=== PATIENT | male | born 1975 | race Asian ===

== ENCOUNTER 2022-08-24 08:54 | Outpatient (REF) | payer OTHER, SELFPAY ==
[2022-08-24 11:10] LABS: MANUAL DIFF FLAG NO
[2022-08-24 11:18] LABS: Basophils Absolute Auto 0.1 X10*3/uL (0.0-0.2); Basophils Percent Auto 0.9 % (0-2); Eosinophils Absolute Auto 0.6 X10*3/uL (0.0-0.4); Eosinophils Percent Auto 8.3 % (0-4); Hematocrit 43.2 % (42.0-52.0); Hemoglobin 14.5 g/dl (14.0-18.0); Imm Gran Abs Auto 0.02 X10*3/uL (0.00-0.03); Imm Gran Pct Auto 0.3 % (0.0-0.4); Lymphocytes Percent Auto 28.7 % (20-40); Mean Corpuscular HGB Conc 33.6 g/dl (31.0-36.0); Mean Corpuscular Hemoglobin 30.5 pg (27.0-33.0); Mean Corpuscular Volume 90.9 fL (80.0-98.0); Mean Platelet Volume 10.6 fL (9.4-12.4); Monocytes Absolute Auto 0.6 X10*3/uL (0.1-1.2); Monocytes Percent Auto 8.3 % (2-11); Neutrophils Absolute Auto 3.7 x10*3/uL (2.0-8.3); Neutrophils Percent Auto 53.5 % (45-73); Platelet Count 314 X10*3/uL (160-400); Red Blood Count 4.75 X10*6/uL (4.60-5.80); Red Cell Distribution Width 12.4 % (11.0-16.0)
[2022-08-24 13:20] LABS: Alanine Aminotransferase 141 U/L (0-40); Albumin Level 4.2 g/dL (3.5-5.0); Alkaline Phosphatase 65 U/L (39-117); Anion Gap 15 (12-20); Aspartate Amino Transferase 77 U/L (5-37); Bilirubin Total 0.6 mg/dL (0.0-1.0); Blood Urea Nitrogen 13 mg/dL (9-16); Calcium 9.3 mg/dL (8.4-10.2); Carbon Dioxide 28 mmol/L (22-29); Chloride 102 mmol/L (96-108); Cholesterol 239 mg/dL; Estimated Glomerular Filt Rate > 60; Glucose Fasting 92 mg/dL (60-99); HDL Cholesterol 47 mg/dL; LDL Cholesterol Calculated 163 mg/dl; Potassium 4.3 mmol/L (3.3-5.1); Sodium 141 mmol/L (135-145); TSH reflex Free T4 1.58 uIU/mL (0.32-4.0); Total Protein 6.8 g/dL (6.5-8.0); Triglycerides 148 mg/dL
== END 2022-08-24 08:55 | disposition home or self-care (01) ==
LOC: HO.HMGCLDS 08:54
PROVIDERS: PCP Internal Medicine; Visit Provider Internal Medicine
DX: Z00.01 Encounter for general adult medical examination with abnormal findings (principal); I10 Essential (primary) hypertension; Z87.442 Personal history of urinary calculi
CPT/HCPCS: 36415; 80053; 80061; 84443; 85025

== ENCOUNTER 2022-09-27 08:25 | Outpatient (REF) | payer OTHER, SELFPAY ==
--- NOTE | ~2022-09-27 | US_ITS ---
EXAMINATION: US ABDOMEN COMPLETE CLINICAL INFORMATION: Elevated LFTs. COMPARISON: None available. TECHNIQUE: Real-time imaging of the abdominal viscera. FINDINGS: PANCREAS: Normal. ABDOMINAL AORTA: The proximal, mid, and distal segments are normal in caliber. INFERIOR VENA CAVA: Visualized portions are normal. LIVER: The liver is normal in size. The liver contour is normal. Diffuse increased echogenicity of the liver parenchyma. No focal hepatic lesion. There is no intrahepatic biliary duct dilatation seen. GALLBLADDER: Normal. The gallbladder is physiologically distended without evidence of stones, sludge, polyps, wall thickening or pericholecystic fluid. COMMON BILE DUCT: Normal in caliber measuring 0.48 cm in diameter. RIGHT KIDNEY: Normal. No hydronephrosis. No renal calculi or focal parenchymal lesions. The kidney measures 10.3 cm in maximum dimension. LEFT KIDNEY: Normal. No hydronephrosis. No renal calculi or focal parenchymal lesions. The kidney measures 10.6 cm in maximum dimension. SPLEEN: Normal. The spleen measures 7.9 cm in maximum dimension. FREE FLUID: None. US/US abdomen complete IMPRESSION: Diffuse increased echogenicity of the liver parenchyma likely reflects fatty infiltration.
== END 2022-09-27 08:26 | disposition home or self-care (01) ==
LOC: HO.HMGCX 08:25
PROVIDERS: PCP Internal Medicine; Visit Provider Internal Medicine
DX: R79.89 Other specified abnormal findings of blood chemistry (principal)
CPT/HCPCS: 76700

== ENCOUNTER 2023-01-13 08:04 | Outpatient (REF) | payer OTHER, SELFPAY ==
[2023-01-13 12:27] LABS: Alanine Aminotransferase 138 U/L (0-40); Albumin Level 4.1 g/dL (3.5-5.0); Alkaline Phosphatase 61 U/L (39-117); Anion Gap 12 (12-20); Aspartate Amino Transferase 71 U/L (5-37); Bilirubin Total 0.5 mg/dL (0.0-1.0); Blood Urea Nitrogen 13 mg/dL (9-16); Calcium 9.2 mg/dL (8.4-10.2); Carbon Dioxide 26 mmol/L (22-29); Chloride 106 mmol/L (96-108); Estimated Glomerular Filt Rate > 60; Glucose Random 108 mg/dL (60-115); Potassium 4.3 mmol/L (3.3-5.1); Sodium 140 mmol/L (135-145)
== END 2023-01-13 08:05 | disposition home or self-care (01) ==
LOC: HO.HMGCLDS 08:04
PROVIDERS: PCP Internal Medicine; Visit Provider Internal Medicine
DX: I10 Essential (primary) hypertension (principal); R79.89 Other specified abnormal findings of blood chemistry; E78.9 Disorder of lipoprotein metabolism, unspecified
CPT/HCPCS: 36415; 80053

== ENCOUNTER 2023-01-15 15:12 | Outpatient (AMB) | payer OTHER, SELFPAY ==
--- NOTE | 2023-01-15 15:13 | MHC.PC.OV ---
Vital Signs 01/15/23 15:14 Height 5 ft 7 in Weight 176 lb 8 oz BMI 27.6 BP 128/98 H Blood Pressure Location Lt brachial Position Sitting Pulse 64 Pulse Source Pulse Oximeter Pulse Oximetry (%) 98 Oxygen Delivery Method Room Air Intake Visit Reasons: med refill Allergies No Known Allergies Allergy (Verified 01/15/23 15:14) Medication List - Last Reconciled 01/15/[address] MD atenolol 50 mg PO DAILY 90 days ezetimibe (Zetia) 10 mg PO DAILY omega 3-vnt-ebk-fish oil 1,000 mg (120 mg-180 mg) (Fish Oil) 1 cap PO DAILY Tobacco use date assessed: 01/15/23 Dental Screening Dental Screen Date: 01/15/23 Did you have a dental problem in the last 6 months where you did not have access to dental care?: No Was dental information given to patient?: No HPI med refill HPI Details Patient is a 47-year-old gentleman came in for his regular follow-up appointment Patient is currently taking atenolol 50 mg his blood pressure is 128/98 medication to atenolol 50-chlorthalidone 25 mg to a distance to pressure is to continue monitoring his blood pressure and your 70s with readings Labs done recently reviewed his liver enzymes continue to be due but stable Ultrasound liver showed fatty liver He is to continue Zetia for lipid disorder Labs to be repeated in 6 months with follow-up [facility] Social History Housing: House Patient Tobacco Use Status: Never used Tobacco e-Cigarette/Vaping Use: Never Used service: No Current occupational status: employed Cognitive needs: No Hearing needs: No Vision needs: Yes Questionnaire Thrive Questionnaire Date Thrive assessed: 08/14/22 AUDIT C Alcohol Use Questionnaire (AUDIT-C) 1. How often do you have a drink containing alcohol?: Never 3. How often do you have six or more drinks on one occasion?: Never Total Score: 0 Score Reviewed/Action Taken: Yes KIRBY-7 AMB Questionnaire KIRBY-7 Date KIRBY - 7 assessed: 08/14/22 Source: Developed by Drs. Corbin Porter, Marion Goodman, Anthony Law and colleagues, with an educational basim from [employer]. Review of Systems Const Denies chills and Denies fever(s) ENT Denies epistaxis and Denies nasal discharge Card Denies chest pain Resp Denies chest congestion, Denies cough and Denies hemoptysis GI Denies diarrhea and Denies nausea Skin/Breast Denies rash Neuro Reports no additional complaints Psych Reports no additional complaints Endo Reports no additional complaints Physical exam (Primary Care) Vital Signs: Last Vital Signs Pulse 64 01/15/23 15:14 BP 128/98 H 01/15/23 15:14 Pulse Ox 98 01/15/23 15:14 Oxygen Delivery Method Room Air 01/15/23 15:14 BMI result Body Mass Index 27.6 Tobacco/Smoking Status: Tobacco use Status Tobacco use date assessed 01/15/23 01/15/23 15:16 Patient Tobacco Use Status Never used Tobacco 01/15/23 15:16 e-Cigarette/Vaping Use Never Used 01/15/23 15:16 Thrive Assessment: Date of Thrive Assessment Date Thrive assessed 08/14/22 01/15/23 15:16 Const General: cooperative, comfortable and no acute distress Orientation/consciousness: patient oriented x3 HENMT Head: Yes normocephalic Eyes General: appearance normal, both eyes and all related structures Neck Neck: Yes supple Resp Effort & Inspection: normal respiratory effort, no cough and no stridor Cardio Rhythm: regular rhythm Heart sounds: S1 normal heart sound present and S2 normal heart sound present Skin General skin exam: turgor normal Neuro General: patient oriented x3, tone normal and moves all extremities Extrem Right lower extremity: no edema Left lower extremity: no edema Assessment and Plan Assessment & Plan (1) Hypertension, essential: Code(s): I10 - Essential (primary) hypertension (2) LFT elevation: Code(s): R79.89 - Other specified abnormal findings of blood chemistry (3) Lipid disorder: Code(s): E78.9 - Disorder of lipoprotein metabolism, unspecified Plan Patient is a 47-year-old gentleman came in for his regular follow-up appointment Patient is currently taking atenolol 50 mg his blood pressure is 128/98 medication to atenolol 50-chlorthalidone 25 mg to a distance to pressure is to continue monitoring his blood pressure and your 70s with readings Labs done recently reviewed his liver enzymes continue to be due but stable Ultrasound liver showed fatty liver He is to continue Zetia for lipid disorder Labs to be repeated in 6 months with follow-up Orders: Orders Comprehensive Met. Panel 5 Months E78.9 - Disorder of lipoprotein metabolism, unspecified, I10 - Essential (primary) hypertension, R79.89 - Other specified abnormal findings of blood chemistry LDL Cholesterol Direct 5 Months E78.9 - Disorder of lipoprotein metabolism, unspecified, I10 - Essential (primary) hypertension, R79.89 - Other specified abnormal findings of blood chemistry Complete Blood Count Auto Diff 5 Months E78.9 - Disorder of lipoprotein metabolism, unspecified, I10 - Essential (primary) hypertension, R79.89 - Other specified abnormal findings of blood chemistry Medications: New atenolol-chlorthalidone 50-25 mg 1 tab PO DAILY 30 tabs 0RF Discontinued atenolol Discontinued Reason: Doctor's Order 50 mg PO DAILY 90 days 90 tabs 0RF Coding Level of Care Code Est Pt Level 3 (28871) Diagnoses Hypertension, essential I10 LFT elevation R7.89 Lipid disorder E78.9
[2023-01-15 15:14] VITALS: BP 128/98; PULSE 64; O2SAT 98; BMI 27.6
== END 2023-01-15 15:34 | disposition home or self-care (01) ==
PROVIDERS: PCP Internal Medicine; Visit Provider Internal Medicine
DX: I10 Essential (primary) hypertension (principal); R79.89 Other specified abnormal findings of blood chemistry; E78.9 Disorder of lipoprotein metabolism, unspecified
CPT/HCPCS: 99213

== ENCOUNTER → 2023-08-27 10:48 | Outpatient (BNVA) | payer OTHER, SELFPAY | PROVIDERS: PCP Internal Medicine; Visit Provider Internal Medicine | DX: S05.52XA Penetrating wound with foreign body of left eyeball, initial encounter (principal); W45.8XXA Other foreign body or object entering through skin, initial encounter | CPT/HCPCS: 92002; 99203 ==

== ENCOUNTER 2023-12-10 11:55 | Outpatient (AMB) | payer OTHER, SELFPAY ==
[2023-12-10 12:02] VITALS: BP 150/120; PULSE 65; O2SAT 96; BMI 27.1
--- NOTE | 2023-12-10 12:02 | A.OFFPC_ITS ---
Vital Signs 12/10/23 12:02 Height 5 ft 7 in Weight 173 lb 4 oz BMI 27.1 BP 150/120 H Blood Pressure Location Lt brachial Position Sitting Pulse 65 Pulse Source Pulse Oximeter Pulse Oximetry (%) 96 Oxygen Delivery Method Room Air Intake Visit Reasons: Annual PE Allergies No Known Allergies Allergy (Verified 12/10/23 12:07) Medication List - Last Reconciled 12/10/[address] MD atenolol-chlorthalidone 50-25 mg 1 tab PO DAILY ezetimibe (Zetia) 10 mg PO DAILY omega 7-oju-yni-fish oil 1,000 mg (120 mg-180 mg) (Fish Oil) 1 cap PO DAILY Tobacco use date assessed: 12/10/23 Dental Screening Dental Screen Date: 12/10/23 Did you have a dental visit in the last 12 months?: Yes Did you have a dental problem in the last 6 months where you did not have access to dental care?: No Was dental information given to patient?: Patient has dentist HPI Annual PE HPI Details Patient is a 48-year-old gentleman came in today for physical exam Last time seen was December of last year Patient is on atenolol chlorthalidone 50-25 mg He forgot to take his medication yesterday, his blood pressure is elevated today at 150/120 Patient says that when he does take medication and he is monitoring blood pressure at home it runs around 120-130 systolic and around 89 to 90 diastolic He has no headache no blurring of vision no chest pain no shortness a breath He was diagnosed with ulcerative colitis in [place] hand took medication for a while and then stopped Currently patient is having bowel movement every time he has a meal He is careful about his diet and is avoiding spicy and fried food He had colonoscopy 5 years ago, he tells me. Patient is due for repeat colonoscopy, I have placed a referral to gastroenterology. Lab order placed to be done fasting Patient is to return in 3 months for follow-up appointment Regular medication intake discussed with the patient. [facility] Social History Housing: House Patient Tobacco Use Status: Never used Tobacco e-Cigarette/Vaping Use: Never Used service: No Current occupational status: employed Cognitive needs: No Hearing needs: No Vision needs: Yes Questionnaire PHQ-9 Over the last 2 weeks, how often have you been bothered by any of the following problems? 1. Little interest or pleasure in doing things: not at all 2. Feeling down, depressed, or hopeless: not at all 3. Trouble falling or staying asleep, or sleeping too much: not at all 4. Feeling tired or having little energy: not at all 5. Poor appetite or overeating: not at all 6. Feeling bad about yourself - or that you are a failure or have let yourself or your family down: not at all 7. Trouble concentrating on things, such as reading the newspaper or watching television: not at all 8. Moving or speaking so slowly that other people could have noticed. Or the opposite - being so fidgety or restless that you have been moving around a lot more than usual: not at all 9. Thoughts that you would be better off or of hurting yourself in some way: not at all Total score: 0 Depression Screening Interpretation: Negative Depression Screening Done: Yes 61651 - PHQ-9 Billing: Yes Source: Developed by Drs. Corbin Porter, Marion Goodman, Anthony Law and colleagues, with an educational basim from [employer]. Thrive Questionnaire Date Thrive assessed: 12/10/23 I am a: Patient What is your living situation today?: I have a steady place to live Within the past 12 months, did the food you bought not last and you didn't have the money to get more?: Never true Within the past 12 months, did you worry whether your food would run out before you got money to buy more?: Never true Do you have trouble paying for medicines?: No Do you have trouble getting transportation to medical appointments?: No Do you have trouble paying your heating and electricity bill?: No Do you have trouble taking care of your child, family member or friend?: No Do you have trouble with day-to-day activities such as bathing, preparing meals, shopping, managing finances, etc.?: No Are you currently unemployed and looking for a job?: No Are you interested in more education?: No Please select the resources that you would like help with: None Currently or been in a relationship where the following occur: no concerns reported THRIVE Score: 0 AUDIT C Alcohol Use Questionnaire (AUDIT-C) 1. How often do you have a drink containing alcohol?: Never 3. How often do you have six or more drinks on one occasion?: Never Total Score: 0 Score Reviewed/Action Taken: Yes KIRBY-7 AMB Questionnaire KIRBY-7 Date KIRBY - 7 assessed: 12/10/23 Feeling nervous, anxious, or on edge: 0 = Not at all Not being able to stop or control worryin = Not at all Worrying too much about different things: 0 = Not at all Trouble relaxin = Not at all Being so restless that it is hard to sit still: 0 = Not at all Becoming easily annoyed or irritable: 0 = Not at all Feeling afraid as if something awful might happen: 0 = Not at all Total KIRBY-7 score (0-4 normal; 5-9 mild; 10-14 moderate; 15-21 severe): 0 Source: Developed by Drs. Corbin Porter, Marion Goodman, Anthony Law and colleagues, with an educational basim from [employer]. KIRBY-7 Assessment Billing KIRBY-7 Assessment Tool: KIRBY-7 Assessment 57316 Review of Systems Const Denies chills, Denies fever(s) and Denies headache(s) Eyes Denies blurry vision ENT Denies headache(s), Denies nasal discharge, Denies nasal obstruction, Denies odynophagia and Denies sinus pain Card Denies chest pain at rest and Denies chest pain with activity Resp Denies cough and Denies hemoptysis GI Denies odynophagia, Denies vomiting and Denies hematemesis Reports as per HPI Musc Denies abnormal gait Skin/Breast Reports as per HPI Neuro Denies Neuro-related abnormal movements, Denies Abnormal speech present, Denies abnormal gait, Denies headache(s) and Denies Sensory deficit (Neuro) Psych Denies mood swings and Denies paranoia Endo Reports as per HPI Ottoniel/Lymph Reports as per HPI Aller/Immun Reports as per HPI Physical exam (Primary Care) Vital Signs: Last Vital Signs Pulse 65 12/10/23 12:02 BP 150/120 H 12/10/23 12:02 Pulse Ox 96 12/10/23 12:02 Oxygen Delivery Method Room Air 12/10/23 12:02 BMI result Body Mass Index 27.1 Tobacco/Smoking Status: Tobacco use Status Tobacco use date assessed 12/10/23 12/10/23 12:11 Patient Tobacco Use Status Never used Tobacco 12/10/23 12:08 e-Cigarette/Vaping Use Never Used 12/10/23 12:08 PHQ-9: PHQ-9 Score PHQ-9: Total score 0 12/10/23 12:12 Depression Screening Interpretation: Negative Thrive Assessment: Date of Thrive Assessment Date Thrive assessed 12/10/23 12/10/23 12:12 Currently or been in a relationship where the following occur: no concerns reported Const General: cooperative, comfortable and no acute distress Orientation/consciousness: patient oriented x3 HENMT Head: Yes normocephalic and Yes atraumatic Eyes General: appearance normal, both eyes and all related structures Pupils: Equal, round and reactive pupils present EOM: EOMs intact bilaterally Neck Neck: Yes supple and No lymphadenopathy Thyroid: Thyroid normal Lymphatic: no lymphadenopathy noted Resp Effort & Inspection: normal respiratory effort and able to speak in complete sentences Auscultation: clear to auscultation bilaterally Cardio Heart sounds: S1 normal heart sound present and S2 normal heart sound present GI Palpation (GI): Soft to palpation and nontender Auscultation: normal bowel sounds General: Yes no CVA tenderness Back/Spine/Pelvis Back: no CVA tenderness Skin General skin exam: elasticity normal and turgor normal Neuro General: patient oriented x3 and gait normal Cranial nerves: Yes Equal, round and reactive pupils present Speech: No Abnormal speech present Sensory Exam: No Sensory deficit (Neuro) Coordination: tandem gait normal and Romberg test negative Extrem General: Yes normal exam except as noted and No edema Assessment and Plan Assessment & Plan (1) Encounter for general adult medical examination with abnormal findings: Code(s): Z00.01 - Encounter for general adult medical examination with abnormal findings (2) Hypertension, essential: Code(s): I10 - Essential (primary) hypertension (3) Lipid disorder: Code(s): E78.9 - Disorder of lipoprotein metabolism, unspecified (4) Ulcerative colitis: Code(s): K51.90 - Ulcerative colitis, unspecified, without complications Qualifiers: Ulcerative colitis location: unspecified ulcerative colitis location Digestive disease complication type: unspecified complication Qualified Code(s): K51.919 - Ulcerative colitis, unspecified with unspecified complications (5) LFT elevation: Code(s): R79.89 - Other specified abnormal findings of blood chemistry Plan Patient is a 48-year-old gentleman came in today for physical exam Last time seen was December of last year Patient is on atenolol chlorthalidone 50-25 mg He forgot to take his medication yesterday, his blood pressure is elevated today at 150/120 Patient says that when he does take medication and he is monitoring blood pressure at home it runs around 120-130 systolic and around 89 to 90 diastolic He has no headache no blurring of vision no chest pain no shortness a breath He was diagnosed with ulcerative colitis in [place] hand took medication for a while and then stopped Currently patient is having bowel movement every time he has a meal He is careful about his diet and is avoiding spicy and fried food He had colonoscopy 5 years ago, he tells me. Patient is due for repeat colonoscopy, I have placed a referral to gastroenterology. Lab order placed to be done fasting Patient is to return in 3 months for follow-up appointment Regular medication intake discussed with the patient. Orders: Orders Comprehensive [place]. Panel Fast Today E78.9 - Disorder of lipoprotein metabolism, unspecified, I10 - Essential (primary) hypertension, K51.919 - Ulcerative colitis, unspecified with unspecified complications, R79.89 - Other specified abnormal findings of blood chemistry, Z00.01 - Encounter for general adult medical examination with abnormal findings Vitamin D 25-OH (D2 and D3) Today E78.9 - Disorder of lipoprotein metabolism, unspecified, I10 - Essential (primary) hypertension, K51.919 - Ulcerative colitis, unspecified with unspecified complications, R79.89 - Other specified abnormal findings of blood chemistry, Z00.01 - Encounter for general adult medical examination with abnormal findings Vitamin B12 Today E78.9 - Disorder of lipoprotein metabolism, unspecified, I10 - Essential (primary) hypertension, K51.919 - Ulcerative colitis, unspecified with unspecified complications, R79.89 - Other specified abnormal findings of blood chemistry, Z00.01 - Encounter for general adult medical examination with abnormal findings TSH reflex Free T4 Today E78.9 - Disorder of lipoprotein metabolism, unspecified, I10 - Essential (primary) hypertension, K51.919 - Ulcerative colitis, unspecified with unspecified complications, R79.89 - Other specified abnormal findings of blood chemistry, Z00.01 - Encounter for general adult medical examination with abnormal findings Complete Blood Count Auto Diff Today E78.9 - Disorder of lipoprotein metabolism, unspecified, I10 - Essential (primary) hypertension, K51.919 - Ulcerative colitis, unspecified with unspecified complications, R79.89 - Other specified abnormal findings of blood chemistry, Z00.01 - Encounter for general adult medical examination with abnormal findings Hepatitis A,B,C Profile Today E78.9 - Disorder of lipoprotein metabolism, unspecified, I10 - Essential (primary) hypertension, K51.919 - Ulcerative colitis, unspecified with unspecified complications, R79.89 - Other specified abnormal findings of blood chemistry, Z00.01 - Encounter for general adult medical examination with abnormal findings Lipid Panel Today E78.9 - Disorder of lipoprotein metabolism, unspecified, I10 - Essential (primary) hypertension, K51.919 - Ulcerative colitis, unspecified with unspecified complications, R79.89 - Other specified abnormal findings of blood chemistry, Z00.01 - Encounter for general adult medical examination with abnormal findings Referrals Gastroenterology Referral K51.919 - Ulcerative colitis, unspecified with unspecified complications Coding Level of Care Code Est Pt Level 4 (90745) Est Pt Prev Care 40-64y(36076) Diagnoses Encounter for general adult medical examination with abnormal findings Z00.01 Hypertension, essential I10 Lipid disorder E78.9 Ulcerative colitis with complication, unspecified location K51.919 Ulcerative colitis location: unspecified ulcerative colitis location Digestive disease complication type: unspecified complication LFT elevation R79.89 Additional Codes KIRBY-7 Assessment Billing - KIRBY-7 Assessment Tool: KIRBY-7 Assessment [id number] ([id number])
== END 2023-12-10 12:33 | disposition home or self-care (01) ==
PROVIDERS: PCP Internal Medicine; Visit Provider Internal Medicine
DX: Z00.00 Encounter for general adult medical examination without abnormal findings (principal); I10 Essential (primary) hypertension; K51.919 Ulcerative colitis, unspecified with unspecified complications; E78.9 Disorder of lipoprotein metabolism, unspecified; R79.89 Other specified abnormal findings of blood chemistry
CPT/HCPCS: 99396

== ENCOUNTER 2023-12-12 12:27 | Outpatient (REF) | payer OTHER, SELFPAY ==
[2023-12-12 16:09] LABS: MANUAL DIFF FLAG NO
[2023-12-12 16:15] LABS: Basophils Absolute Auto 0.1 X10*3/uL (0.0-0.2); Basophils Percent Auto 0.7 % (0-2); Eosinophils Absolute Auto 0.4 X10*3/uL (0.0-0.4); Eosinophils Percent Auto 5.3 % (0-4); Hematocrit 44.1 % (42.0-52.0); Hemoglobin 14.7 g/dl (14.0-18.0); Imm Gran Abs Auto 0.02 X10*3/uL (0.00-0.03); Imm Gran Pct Auto 0.3 % (0.0-0.4); Lymphocytes Absolute Auto 2.2 X10*3/uL (1.2-4.9); Lymphocytes Percent Auto 31.3 % (20-40); Mean Corpuscular HGB Conc 33.3 g/dl (31.0-36.0); Mean Corpuscular Hemoglobin 31.8 pg (27.0-33.0); Mean Corpuscular Volume 95.5 fL (80.0-98.0); Mean Platelet Volume 10.9 fL (9.4-12.4); Monocytes Absolute Auto 0.6 X10*3/uL (0.1-1.2); Neutrophils Absolute Auto 3.8 x10*3/uL (2.0-8.3); Neutrophils Percent Auto 54.4 % (45-73); Platelet Count 314 X10*3/uL (160-400); Red Blood Count 4.62 X10*6/uL (4.60-5.80); Red Cell Distribution Width 13.2 % (11.0-16.0)
[2023-12-12 16:52] LABS: Alanine Aminotransferase 94 U/L (0-40); Albumin Level 4.2 g/dL (3.5-5.0); Alkaline Phosphatase 57 U/L (39-117); Anion Gap 12 (12-20); Aspartate Amino Transferase 61 U/L (5-37); Bilirubin Total 0.7 mg/dL (0.0-1.0); Blood Urea Nitrogen 11 mg/dL (9-16); Calcium 9.1 mg/dL (8.4-10.2); Carbon Dioxide 28 mmol/L (22-29); Chloride 103 mmol/L (96-108); Cholesterol 155 mg/dL (<200); Estimated Glomerular Filt Rate > 60; Glucose Fasting 90 mg/dL (60-99); Glucose Random 90 mg/dL (60-115); HDL Cholesterol 33 mg/dL (>40); LDL Cholesterol Calculated 100 mg/dL (<100); Sodium 139 mmol/L (135-145); Triglycerides 112 mg/dL (<150)
[2023-12-12 17:02] LABS: Vitamin B12 200 pg/mL (200-900)
[2023-12-12 17:09] LABS: TSH reflex Free T4 1.53 uIU/mL (0.32-4.0)
[2023-12-14 08:49] LABS: LDL Cholesterol Direct 110 mg/dL (<100)
[2023-12-15 04:01] LABS: HBS Num1 0.49 mIU/mL (0-7.99); HBc Num1 0.11 S/CO (0.00-0.79); HBsAGNum1 0.27 S/CO (0.00-0.99); Hepatitis A Antibody IgM 0.27 Index (0-0.79); Hepatitis B Core Antibody Nonreactive (Nonreactive); Hepatitis B Surface Antigen Negative (Negative); ~HepC Num1 0.11 S/CO (0.00-0.79); ~Hepatitis A Antibody IgM Nonreactive (Nonreactive); ~Hepatitis B Surface Antibody NONREACTIVE (Nonreactive); ~Hepatitis C Antibody Nonreactive (Nonreactive)
[2023-12-17 13:52] LABS: Vitamin D 25-OH, D2 <4 ng/mL; Vitamin D 25-OH, D3 9 ng/mL; Vitamin D 25-OH, Total 9 ng/mL (30-100)
== END 2023-12-12 12:28 | disposition home or self-care (01) ==
LOC: HO.HMGCLDS 12:27
PROVIDERS: PCP Internal Medicine; Visit Provider Internal Medicine
DX: Z00.01 Encounter for general adult medical examination with abnormal findings (principal); R79.89 Other specified abnormal findings of blood chemistry; E78.9 Disorder of lipoprotein metabolism, unspecified; K51.919 Ulcerative colitis, unspecified with unspecified complications; I10 Essential (primary) hypertension
CPT/HCPCS: 36415; 80053; 80061; 82306; 82607; 83721; 84443; 85025; 86704; 86706; 86709; 86803; 87340

== ENCOUNTER 2024-02-04 14:58 | Outpatient (AMB) | payer OTHER, SELFPAY ==
--- NOTE | 2024-02-04 15:01 | MHC.OFFVIS ---
Vital Signs 02/04/24 15:02 Height 5 ft 7 in Weight 170 lb 3.15 oz BMI 26.7 BP 129/87 Blood Pressure Location Lt brachial Position Sitting Pulse 64 Intake Visit Reasons: Ulcerative colitis Intake Note: New patient in office today for ulcerative colitis. CC: Patient reports that he had colonoscopy/ EGD done 6 months ago in [place]. Patient reports occasional occasional hearburn, rectal bleeding ,and liquid stools sometimes. Allergies No Known Allergies Allergy (Verified 02/04/24 15:19) HPI HPI Ulcerative colitis: Details: 48-year-old male here for initial evaluation of ulcerative colitis. It would appear he is also due for colonoscopy. He is referred by Suyapa Way. PMX Hypertension Elevated LFTs High cholesterol Nephrolithiasis Ulcerative colitis * SURGICAL HISTORY Lithotripsy Colonoscopy-2 years ago [facility] * ALLERGIES: NKDA * [employer] LABS: Laboratory Tests 12/12/23 12:40 WBC 7.0 Hgb 14.7 Hct 44.1 Plt Count 314 Estimated GFR > 60 Total Bilirubin 0.7 AST 61 H ALT 94 H Alkaline Phosphatase 57 TSH 1.53 TODAY'S VISIT He was dx'ed in [facility] with UC after multiple frequent BM's and a change in his bowel habits. He was not bleeding at that time, but now he does occasionally. He brought his reports and is on mesalamine oral, rectal and proctofoam. BUT he did not have the pathology report. He has been avoiding gluten - likely not needed. Printed information on general topic of ulcerative colitis from [employer] and nutritional guide from [employer]. He was educated encouraged to continue his mesalamine as a chronic medication. He was also educated that sometimes this is not enough to keep IBD in remission so should he develop more symptoms despite medication compliance she should let me know right away. This does not denote failure on his part. He was also educated that he should be having a colonoscopy every 2 years as people with inflammatory bowel disease have a higher chance of developing colorectal cancer in their lifetime. He likes to by his medication over season [place] because it is much less expensive therefore I will be setting any prescription to the local pharmacy at this time. ROV 6 mos. PFS Medical History (Updated 02/04/24 @ 17:28 by TIANNA Francis) Pre-op examination Encounter for general adult medical examination with abnormal findings Surgical History (Updated 02/04/24 @ 15:23 by TOÑO Hamilton) History of esophagogastroduodenoscopy (EGD) H/O lithotripsy H/O colonoscopy Family History Mother Breast cancer Social History Housing: House Patient Tobacco Use Status: Never used Tobacco e-Cigarette/Vaping Use: Never Used service: No Current occupational status: employed Cognitive needs: No Hearing needs: No Vision needs: Yes Review of Systems Const Denies fatigue, Denies fever(s), Denies night sweats, Denies poor appetite and Denies weight loss Eyes Details: glasses Reports requires corrective lenses ENT Reports Normal hearing present, Denies dental pain, Denies dysphagia, Denies hearing loss, Denies mouth pain, Denies odynophagia, Denies throat swelling, Denies tongue swelling and Reports other (Dentition adequate) Card Reports no additional complaints Resp Reports no additional complaints GI Details: Denies abdominal pain, Denies melena, Reports bloating, Reports hematochezia, Denies constipation, Denies GI cramping, Denies dysphagia, Denies excessive flatus, Denies early satiety, Denies heartburn, Denies diarrhea, Denies nausea, Denies odynophagia, Denies vomiting and Denies hematemesis Skin/Breast Denies pruritus, Denies lesions, Denies rash and Denies jaundice Neuro Reports Normal hearing present and Denies Abnormal speech present Endo Denies fatigue Aller/Immun Denies throat swelling and Denies tongue swelling Physical Exam Const General: cooperative, no acute distress, well developed and well groomed Nutritional Appearance: average body habitus and well nourished Orientation/consciousness: oriented to person, oriented to place and oriented to time Limitations: No language barrier HEENT Head: Yes normocephalic and Yes atraumatic Eyes General: appearance normal, both eyes and all related structures Pupils: Equal, round and reactive pupils present Neck Neck: Yes normal visual inspection and Yes no lymphadenopathy Thyroid: Thyroid normal Resp Effort & Inspection: normal respiratory effort and able to speak in complete sentences Auscultation: clear to auscultation bilaterally Cardio Rate: regular rate Rhythm: regular rhythm Heart sounds: Normal, physiologic split S2 sound present Peripheral pulses: radial pulses present and posterior tibial pulses present GI Inspection: No distended and No Abdominal panniculus present Palpation (GI): Soft to palpation, nontender, no guarding, not rigid and No hepatosplenomegaly present Percussion: Yes normal to percussion Auscultation: normal bowel sounds Rectal Exam - Male: Yes deferred Skin General skin exam: no rashes or lesions noted, turgor normal, skin not dry, no jaundice, No spider nevi and no striae Rashes: no rashes Nails: normal Neuro General: oriented to person, oriented to place and oriented to time Cranial nerves: Yes Equal, round and reactive pupils present and Yes Normal hearing present Speech: No Abnormal speech present Extrem General: Yes normal to inspection, No clubbing, No cyanosis and No edema Psych Appearance: grossly normal and well kempt Mental Status: mental status grossly normal Speech and movement: Normal speech and movement present Affect: normal affect Attitude: cooperative Thought process: Normal thought process present and not confabulating Thought content: Normal thought content present Insight: Fair insight present (Psych) Judgement: Fair judgement present (Psych) Assessment & Plan Assessment & Plan (1) Ulcerative colitis: Code(s): K51.90 - Ulcerative colitis, unspecified, without complications Category: Medical Qualifiers: Ulcerative colitis location: unspecified ulcerative colitis location Digestive disease complication type: unspecified complication Qualified Code(s): K51.919 - Ulcerative colitis, unspecified with unspecified complications Plan He was dx'ed in [facility] with UC after multiple frequent BM's and a change in his bowel habits. He was not bleeding at that time, but now he does occasionally. He brought his reports and is on mesalamine oral, rectal and proctofoam. BUT he did not have the pathology report. He has been avoiding gluten - likely not needed. Printed information on general topic of ulcerative colitis from [employer] and nutritional guide from [employer]. He was educated encouraged to continue his mesalamine as a chronic medication. He was also educated that sometimes this is not enough to keep IBD in remission so should he develop more symptoms despite medication compliance she should let me know right away. This does not denote failure on his part. He was also educated that he should be having a colonoscopy every 2 years as people with inflammatory bowel disease have a higher chance of developing colorectal cancer in their lifetime. He likes to by his medication over season [place] because it is much less expensive therefore I will be setting any prescription to the local pharmacy at this time. ROV 6 mos. Coding Level of Care Code New Pt Level 3 (15501) Diagnoses Ulcerative colitis with complication, unspecified location K51.919 Ulcerative colitis location: unspecified ulcerative colitis location Digestive disease complication type: unspecified complication
[2024-02-04 15:02] VITALS: BP 129/87; PULSE 64; BMI 26.7
== END 2024-02-04 15:56 | disposition home or self-care (01) ==
PROVIDERS: PCP Internal Medicine; Visit Provider Nurse Practitioner
DX: K51.919 Ulcerative colitis, unspecified with unspecified complications (principal)
CPT/HCPCS: 99203

== ENCOUNTER → 2024-02-04 14:58 | Outpatient (BNVA) | payer OTHER, SELFPAY | PROVIDERS: PCP Internal Medicine; Visit Provider Nurse Practitioner ==

== ENCOUNTER 2024-03-16 14:49 | Outpatient (AMB) | payer OTHER, SELFPAY ==
[2024-03-16 15:00] VITALS: BP 130/84; PULSE 73; BMI 27.1
--- NOTE | 2024-03-16 15:00 | A.OFFPC_ITS ---
Vital Signs 03/16/24 15:00 Height 5 ft 7 in Weight 173 lb BMI 27.1 BP 130/84 Blood Pressure Location Rt brachial Position Sitting Pulse 73 Pulse Source Pulse Oximeter Intake Visit Reasons: 3 month follow up Allergies No Known Allergies Allergy (Verified 03/16/24 15:04) Medication List - Last Reconciled 03/16/[address] MD atenolol-chlorthalidone 50-25 mg 1 tab PO DAILY ezetimibe (Zetia) 10 mg PO DAILY flaxseed oil 1,000 mg PO DAILY multivitamin 1 tab PO DAILY omega 6-ipv-kfb-fish oil 1,000 mg (120 mg-180 mg) (Fish Oil) 1 cap PO DAILY Tobacco use date assessed: 03/16/24 Dental Screening Dental Screen Date: 03/16/24 Did you have a dental visit in the last 12 months?: Yes Did you have a dental problem in the last 6 months where you did not have access to dental care?: No Was dental information given to patient?: Patient has dentist HPI 3 month follow up HPI Details Patient is a 48-year-old gentleman came in today for his regular follow-up appointment Blood pressure is well-controlled now Patient is taking atenolol chlorthalidone regularly Continue Zetia Vitamin-D level is very low, last time patient was notified to start taking xdin-lqi-lokwsmi vitamin-D Was some misunderstanding he thought that it was instructed for his I have sent 79514 unit caps for the patient is to start taking that 1 every week for next 3 months Labs are needed before next visit in 3 months [facility] Medical History Pre-op examination Encounter for general adult medical examination with abnormal findings Surgical History History of esophagogastroduodenoscopy (EGD) H/O lithotripsy H/O colonoscopy Family History Mother Breast cancer Social History Housing: House Patient Tobacco Use Status: Never used Tobacco e-Cigarette/Vaping Use: Never Used service: No Current occupational status: employed Cognitive needs: No Hearing needs: No Vision needs: Yes Questionnaire PHQ-9 Over the last 2 weeks, how often have you been bothered by any of the following problems? 1. Little interest or pleasure in doing things: not at all 2. Feeling down, depressed, or hopeless: not at all 3. Trouble falling or staying asleep, or sleeping too much: not at all 4. Feeling tired or having little energy: not at all 5. Poor appetite or overeating: not at all 6. Feeling bad about yourself - or that you are a failure or have let yourself or your family down: not at all 7. Trouble concentrating on things, such as reading the newspaper or watching television: not at all 8. Moving or speaking so slowly that other people could have noticed. Or the opposite - being so fidgety or restless that you have been moving around a lot more than usual: not at all 9. Thoughts that you would be better off or of hurting yourself in some way: not at all Total score: 0 Depression Screening Interpretation: Negative Depression Screening Done: Yes 47910 - PHQ-9 Billing: Yes Source: Developed by Drs. Corbin Porter, Marion Goodman, Anthony Law and colleagues, with an educational basim from [employer]. Thrive Questionnaire Date Thrive assessed: 03/16/24 I am a: Patient What is your living situation today?: I have a steady place to live Within the past 12 months, did the food you bought not last and you didn't have the money to get more?: I choose not to answer this question Within the past 12 months, did you worry whether your food would run out before you got money to buy more?: I choose not to answer this question Do you have trouble paying for medicines?: I choose not to answer this question Do you have trouble getting transportation to medical appointments?: I choose not to answer this question Do you have trouble paying your heating and electricity bill?: I choose not to answer this question Do you have trouble taking care of your child, family member or friend?: I choose not to answer this question Do you have trouble with day-to-day activities such as bathing, preparing meals, shopping, managing finances, etc.?: I choose not to answer this question Are you interested in more education?: I choose not to answer this question Please select the resources that you would like help with: None Currently or been in a relationship where the following occur: I choose not to answer THRIVE Score: 0 AUDIT C Alcohol Use Questionnaire (AUDIT-C) 1. How often do you have a drink containing alcohol?: Never 3. How often do you have six or more drinks on one occasion?: Never Total Score: 0 Score Reviewed/Action Taken: Yes KIRBY-7 AMB Questionnaire KIRBY-7 Date KIRBY - 7 assessed: 03/16/24 Feeling nervous, anxious, or on edge: 0 = Not at all Not being able to stop or control worryin = Not at all Worrying too much about different things: 0 = Not at all Trouble relaxin = Not at all Being so restless that it is hard to sit still: 0 = Not at all Becoming easily annoyed or irritable: 0 = Not at all Feeling afraid as if something awful might happen: 0 = Not at all Total KIRBY-7 score (0-4 normal; 5-9 mild; 10-14 moderate; 15-21 severe): 0 Source: Developed by Drs. Corbin Porter, Marion Goodman, Anthony Law and colleagues, with an educational basim from [employer]. KIRBY-7 Assessment Billing KIRBY-7 Assessment Tool: KIRBY-7 Assessment 56600 Review of Systems Const Denies chills and Denies fever(s) ENT Denies epistaxis and Denies nasal discharge Card Denies chest pain Resp Denies chest congestion, Denies cough and Denies hemoptysis GI Denies diarrhea and Denies nausea Skin/Breast Denies rash Neuro Reports no additional complaints Psych Reports no additional complaints Endo Reports no additional complaints Physical exam (Primary Care) Vital Signs: Last Vital Signs Pulse 73 03/16/24 15:00 BP 130/84 03/16/24 15:00 BMI result Body Mass Index 27.1 Tobacco/Smoking Status: Tobacco use Status Tobacco use date assessed 03/16/24 03/16/24 15:04 Patient Tobacco Use Status Never used Tobacco 03/16/24 15:03 e-Cigarette/Vaping Use Never Used 03/16/24 15:03 PHQ-9: PHQ-9 Score PHQ-9: Total score 0 03/16/24 15:04 Depression Screening Interpretation: Negative Thrive Assessment: Date of Thrive Assessment Date Thrive assessed 03/16/24 03/16/24 15:04 Currently or been in a relationship where the following occur: I choose not to answer Const General: cooperative, comfortable and no acute distress Orientation/consciousness: patient oriented x3 HENMT Head: Yes normocephalic Eyes General: appearance normal, both eyes and all related structures Neck Neck: Yes supple Resp Effort & Inspection: normal respiratory effort, no cough and no stridor Cardio Rhythm: regular rhythm Heart sounds: S1 normal heart sound present and S2 normal heart sound present Skin General skin exam: turgor normal Neuro General: patient oriented x3, tone normal and moves all extremities Extrem Right lower extremity: no edema Left lower extremity: no edema Assessment and Plan Assessment & Plan (1) Hypertension, essential: Code(s): I10 - Essential (primary) hypertension (2) LFT elevation: Code(s): R79.89 - Other specified abnormal findings of blood chemistry (3) Lipid disorder: Code(s): E78.9 - Disorder of lipoprotein metabolism, unspecified (4) Vitamin D deficiency: Code(s): E55.9 - Vitamin D deficiency, unspecified Plan Patient is a 48-year-old gentleman came in today for his regular follow-up appointment Blood pressure is well-controlled now Patient is taking atenolol chlorthalidone regularly Continue Zetia Vitamin-D level is very low, last time patient was notified to start taking wply-rph-hbbkrvm vitamin-D Was some misunderstanding he thought that it was instructed for his I have sent 41783 unit caps for the patient is to start taking that 1 every week for next 3 months Labs are needed before next visit in 3 months Orders: Orders Comprehensive [place]. Panel Fast Today E55.9 - Vitamin D deficiency, unspecified, E78.9 - Disorder of lipoprotein metabolism, unspecified, I10 - Essential (primary) hypertension, R79.89 - Other specified abnormal findings of blood chemistry Vitamin D 25-OH (D2 and D3) Today E55.9 - Vitamin D deficiency, unspecified, E78.9 - Disorder of lipoprotein metabolism, unspecified, I10 - Essential (primary) hypertension, R79.89 - Other specified abnormal findings of blood chemistry Lipid Panel Today E55.9 - Vitamin D deficiency, unspecified, E78.9 - Disorder of lipoprotein metabolism, unspecified, I10 - Essential (primary) hypertension, R79.89 - Other specified abnormal findings of blood chemistry Complete Blood Count Auto Diff Today E55.9 - Vitamin D deficiency, unspecified, E78.9 - Disorder of lipoprotein metabolism, unspecified, I10 - Essential (primary) hypertension, R79.89 - Other specified abnormal findings of blood chemistry Medications: New ergocalciferol (vitamin D2) 1,250 mcg PO QWEEK 90 days 13 caps 0RF Coding Level of Care Code Est Pt Level 4 (65627) Diagnoses Hypertension, essential I10 LFT elevation R79.89 Lipid disorder E78.9 Vitamin D deficiency E55.9 Additional Codes KIRBY-7 Assessment Billing - KIRBY-7 Assessment Tool: IKRBY-7 Assessment 54926 ([id number])
== END 2024-03-16 15:41 | disposition home or self-care (01) ==
PROVIDERS: PCP Internal Medicine; Visit Provider Internal Medicine
DX: I10 Essential (primary) hypertension (principal); R79.89 Other specified abnormal findings of blood chemistry; E78.9 Disorder of lipoprotein metabolism, unspecified; E55.9 Vitamin D deficiency, unspecified

== ENCOUNTER → 2024-03-16 14:49 | Outpatient (BNVA) | payer OTHER, SELFPAY | PROVIDERS: PCP Internal Medicine; Visit Provider Internal Medicine | DX: I10 Essential (primary) hypertension (principal); R79.89 Other specified abnormal findings of blood chemistry; E78.9 Disorder of lipoprotein metabolism, unspecified; E55.9 Vitamin D deficiency, unspecified; Z79.899 Other long term (current) drug therapy | CPT/HCPCS: 96127 ==

== ENCOUNTER 2024-06-11 10:28 | Outpatient (REF) | payer OTHER, SELFPAY ==
[2024-06-11 13:11] LABS: MANUAL DIFF FLAG NO
[2024-06-11 13:26] LABS: Basophils Absolute Auto 0.1 X10*3/uL (0.0-0.2); Eosinophils Absolute Auto 0.4 X10*3/uL (0.0-0.4); Eosinophils Percent Auto 5.6 % (0-4); Hematocrit 45.1 % (42.0-52.0); Hemoglobin 15.3 g/dl (14.0-18.0); Imm Gran Abs Auto 0.02 X10*3/uL (0.00-0.03); Imm Gran Pct Auto 0.3 % (0.0-0.4); Lymphocytes Absolute Auto 1.6 X10*3/uL (1.2-4.9); Lymphocytes Percent Auto 26.2 % (20-40); Mean Corpuscular HGB Conc 33.9 g/dl (31.0-36.0); Mean Corpuscular Hemoglobin 31.5 pg (27.0-33.0); Mean Corpuscular Volume 92.8 fL (80.0-98.0); Monocytes Absolute Auto 0.5 X10*3/uL (0.1-1.2); Monocytes Percent Auto 8.5 % (2-11); Neutrophils Absolute Auto 3.6 x10*3/uL (2.0-8.3); Neutrophils Percent Auto 58.4 % (45-73); Platelet Count 287 X10*3/uL (160-400); Red Blood Count 4.86 X10*6/uL (4.60-5.80); Red Cell Distribution Width 12.9 % (11.0-16.0); White Blood Count 6.2 X10*3/uL (4.8-10.8)
[2024-06-11 13:40] LABS: Alanine Aminotransferase 57 U/L (0-40); Albumin Level 4.3 g/dL (3.5-5.0); Alkaline Phosphatase 64 U/L (39-117); Anion Gap 10 (12-20); Aspartate Amino Transferase 46 U/L (5-37); Bilirubin Total 0.8 mg/dL (0.0-1.0); Blood Urea Nitrogen 12 mg/dL (9-16); Calcium 9.6 mg/dL (8.4-10.2); Carbon Dioxide 30 mmol/L (22-29); Chloride 104 mmol/L (96-108); Cholesterol 186 mg/dL (<200); Estimated Glomerular Filt Rate > 60; Glucose Fasting 94 mg/dL (60-99); HDL Cholesterol 36 mg/dL (>40); LDL Cholesterol Calculated 129 mg/dL (<100); Potassium 3.7 mmol/L (3.3-5.1); Sodium 140 mmol/L (135-145); Total Protein 7.5 g/dL (6.5-8.0); Triglycerides 106 mg/dL (<150)
[2024-06-16 17:24] LABS: Vitamin D 25-OH, D2 38 ng/mL; Vitamin D 25-OH, D3 14 ng/mL; Vitamin D 25-OH, Total 52 ng/mL (30-100)
== END 2024-06-11 10:29 | disposition home or self-care (01) ==
LOC: HO.HMGCLDS 10:28
PROVIDERS: PCP Internal Medicine; Visit Provider Internal Medicine
DX: Z00.01 Encounter for general adult medical examination with abnormal findings (principal); I10 Essential (primary) hypertension; R79.89 Other specified abnormal findings of blood chemistry; E78.9 Disorder of lipoprotein metabolism, unspecified; E55.9 Vitamin D deficiency, unspecified; K51.919 Ulcerative colitis, unspecified with unspecified complications
CPT/HCPCS: 36415; 80053; 80061; 82306; 85025

== ENCOUNTER 2024-06-16 14:49 | Outpatient (AMB) | payer OTHER, SELFPAY ==
[2024-06-16 14:52] VITALS: BP 110/74; PULSE 67; O2SAT 98; BMI 26.8
--- NOTE | 2024-06-16 14:52 | A.OFFPC_ITS ---
Vital Signs 06/16/24 14:52 Height 5 ft 7 in Weight 171 lb BMI 26.8 BP 110/74 Blood Pressure Location Lt brachial Position Sitting Pulse 67 Pulse Source Pulse Oximeter Pulse Oximetry (%) 98 Oxygen Delivery Method Room Air Intake Visit Reasons: 3m follow up Allergies No Known Allergies Allergy (Verified 06/16/24 14:53) Medication List - Last Reconciled 06/16/[address] MD atenolol-chlorthalidone 50-25 mg 1 tab PO DAILY ergocalciferol (vitamin D2) 1,250 mcg PO QWEEK 90 days ezetimibe (Zetia) 10 mg PO DAILY flaxseed oil 1,000 mg PO DAILY multivitamin 1 tab PO DAILY omega 9-etv-oxs-fish oil 1,000 (120-180) mg (Fish Oil) 1 cap PO DAILY Tobacco use date assessed: 06/16/24 Dental Screening Dental Screen Date: 06/16/24 Did you have a dental visit in the last 12 months?: Yes Did you have a dental problem in the last 6 months where you did not have access to dental care?: No Was dental information given to patient?: Patient has dentist HPI 3m follow up HPI Details History - bulleted - The patient is a 48-year-old male pres enting for regular follow-up for hypertension and hypercholesterolemia. - Blood pressure well-managed, reported at 110/74 mmHg, with current medication regimen including atenolol. - The patient is also on chlorthalidone for hypertension and - Zetia for lipid diroder Problem List - Essential Hypertension - Hypercholesterolemia labs done this month reviewed with patient LDL has gotten slightly worse LFT has improved Review of Systems - Cardiovascular: Reports no new symptom s or side effects. - General: Denies any new complaints or issues. No fever no chills neurological: No headaches no dizziness ear nose throat: No sore throat no hearing difficulty no ear pain musculoskeletal: Usual aches and pains nothing new cardiovascular: No syncope, no chest pain, no palpitations gastrointestinal: No nausea vomiting or diarrhea endocrine: No polyuria polydipsia no heat intolerance genitourinary: No dysuria skin: No new complaints Physical Exam general: No acute distress HEENT: No acute findings neck: Supple respiratory system: Able to talk in full sentences, no audible wheeze no stridor cardiovascular: S1-S2 gastrointestinal: No pain extremities: No new findings CLASSIFICATION INSPECTOR: Alert awake oriented x3 motor sensory intact skin: Normal turgor Patient Instructions - Continue current medications: atenolol chlorthalidone. and zetia - Monitor and control dietary intake to manage cholesterol levels. - Plan to travel to [facility]; ensure contin uity of care and medication availability. - Schedule next follow-up appointment in four months. - We've confirmed flu vaccine was admini stered at work, no need for additional vaccination now. labs needed in 4 M before visit, order placed [facility] Medical History Pre-op examination Encounter for general adult medical examination with abnormal findings Surgical History History of esophagogastroduodenoscopy (EGD) H/O lithotripsy H/O colonoscopy Family History Mother Breast cancer Social History Housing: House Patient Tobacco Use Status: Never used Tobacco e-Cigarette/Vaping Use: Never Used service: No Current occupational status: employed Cognitive needs: No Hearing needs: No Vision needs: Yes Questionnaire Thrive Questionnaire Date Thrive assessed: 06/16/24 I am a: Patient What is your living situation today?: I have a steady place to live Within the past 12 months, did the food you bought not last and you didn't have the money to get more?: I choose not to answer this question Within the past 12 months, did you worry whether your food would run out before you got money to buy more?: I choose not to answer this question Do you have trouble paying for medicines?: I choose not to answer this question Do you have trouble getting transportation to medical appointments?: I choose not to answer this question Do you have trouble paying your heating and electricity bill?: I choose not to answer this question Do you have trouble taking care of your child, family member or friend?: I choose not to answer this question Do you have trouble with day-to-day activities such as bathing, preparing meals, shopping, managing finances, etc.?: I choose not to answer this question Are you currently unemployed and looking for a job?: No Are you interested in more education?: I choose not to answer this question Please select the resources that you would like help with: None Currently or been in a relationship where the following occur: I choose not to answer THRIVE Score: 0 AUDIT C Alcohol Use Questionnaire (AUDIT-C) 1. How often do you have a drink containing alcohol?: Never 3. How often do you have six or more drinks on one occasion?: Never Total Score: 0 Score Reviewed/Action Taken: Yes KIRBY-7 AMB Questionnaire KIRBY-7 Date KIRBY - 7 assessed: 03/16/24 Source: Developed by Drs. Corbin Porter, Marion Goodman, Anthony Law and colleagues, with an educational basim from [employer]. Physical exam (Primary Care) Vital Signs: Last Vital Signs Pulse 67 06/16/24 14:52 BP 110/74 06/16/24 14:52 Pulse Ox 98 06/16/24 14:52 Oxygen Delivery Method Room Air 06/16/24 14:52 BMI result Body Mass Index 26.8 Tobacco/Smoking Status: Tobacco use Status Tobacco use date assessed 06/16/24 06/16/24 14:53 Patient Tobacco Use Status Never used Tobacco 06/16/24 14:53 e-Cigarette/Vaping Use Never Used 06/16/24 14:53 Thrive Assessment: Date of Thrive Assessment Date Thrive assessed 06/16/24 06/16/24 14:53 Currently or been in a relationship where the following occur: I choose not to answer Coding Level of Care Code Est Pt Level 3 (84492) Diagnoses Hypertension, essential I10 LFT elevation R79.89 Lipid disorder E78.9 Vitamin D deficiency E55.9 Assessment & Plan Assessment & Plan (1) Hypertension, essential: Code(s): I10 - Essential (primary) hypertension Category: Medical (2) LFT elevation: Code(s): R79.89 - Other specified abnormal findings of blood chemistry Category: Medical (3) Lipid disorder: Code(s): E78.9 - Disorder of lipoprotein metabolism, unspecified Category: Medical (4) Vitamin D deficiency: Code(s): E55.9 - Vitamin D deficiency, unspecified Category: Medical Plan History - bulleted - The patient is a 48-year-old male presenting for regular follow-up for hypertension and hypercholesterolemia. - Blood pressure well-managed, reported at 110/74 mmHg, with current medication regimen including atenolol. - The patient is also on chlorthalidone for hypertension and - Zetia for lipid diroder Problem List - Essential Hypertension - Hypercholesterolemia labs done this month reviewed with patient LDL has gotten slightly worse LFT has improved Review of Systems - Cardiovascular: Reports no new symptoms or side effects. - General: Denies any new complaints or issues. No fever no chills neurological: No headaches no dizziness ear nose throat: No sore throat no hearing difficulty no ear pain musculoskeletal: Usual aches and pains nothing new cardiovascular: No syncope, no chest pain, no palpitations gastrointestinal: No nausea vomiting or diarrhea endocrine: No polyuria polydipsia no heat intolerance genitourinary: No dysuria skin: No new complaints Physical Exam general: No acute distress HEENT: No acute findings neck: Supple respiratory system: Able to talk in full sentences, no audible wheeze no stridor cardiovascular: S1-S2 gastrointestinal: No pain extremities: No new findings CLASSIFICATION INSPECTOR: Alert awake oriented x3 motor sensory intact skin: Normal turgor Patient Instructions - Continue current medications: atenolol chlorthalidone. and zetia - Monitor and control dietary intake to manage cholesterol levels. - Plan to travel to [facility]; ensure continuity of care and medication availability. - Schedule next follow-up appointment in four months. - We've confirmed flu vaccine was administered at work, no need for additional vaccination now. labs needed in 4 M before visit, order placed Orders: Orders Lipase 3 Months E55.9 - Vitamin D deficiency, unspecified, E78.9 - Disorder of lipoprotein metabolism, unspecified, I10 - Essential (primary) hypertension, R79.89 - Other specified abnormal findings of blood chemistry Complete Blood Count Auto Diff 3 Months E55.9 - Vitamin D deficiency, unspecified, E78.9 - Disorder of lipoprotein metabolism, unspecified, I10 - Essential (primary) hypertension, R79.89 - Other specified abnormal findings of blood chemistry Comprehensive [place]. Panel Fast 3 Months E55.9 - Vitamin D deficiency, unspecified, E78.9 - Disorder of lipoprotein metabolism, unspecified, I10 - Essential (primary) hypertension, R79.89 - Other specified abnormal findings of blood chemistry Medications: Refilled atenolol-chlorthalidone 50-25 mg 1 tab PO DAILY 90 tabs 1RF ezetimibe (Zetia) 10 mg PO DAILY 90 tabs 1RF
--- OUTSIDE RECORDS SUMMARY | 2024-06-16 15:13 | XMS_ITS | Continuity of Care Document ---
Author Organization [facility] Address [address] [address],[address] [place] [address] Phone Care Team Providers Care Banquet Kitchen Supervisor Name Role Phone Z-Converted, Provider Unavailable Unavailabl [...] Date Provider Providers Copied on Encounter [facility], [address] [place] [address],[address], [place], [place], [id number], [place] tel:[phone] 2 [facility] Cellulitis and abscess of other specified sites 7 Z-Convert ed Provider. . [facility], [address] [place] [address],[address], [place], [place], [id number], [place] tel:[phone] 2 Converted Locations No Information 7 Z-Convert ed Provider. . [facility], [address] [place] [address],[address], [place], [place], [id number], [place] tel:[phone] 2 [facility] Rash and other nonspecific skin eruption 7 Z-Convert ed Provider. . [facility], [address], [place], [place], [id number], [place] tel:[phone] 2 Converted Locations No Information 200 7 [...]
== END 2024-06-16 15:14 | disposition home or self-care (01) ==
PROVIDERS: PCP Internal Medicine; Visit Provider Internal Medicine
DX: I10 Essential (primary) hypertension (principal); R79.89 Other specified abnormal findings of blood chemistry; E78.9 Disorder of lipoprotein metabolism, unspecified; E55.9 Vitamin D deficiency, unspecified

== ENCOUNTER 2024-10-11 08:13 | Outpatient (REF) | payer OTHER, SELFPAY ==
--- OUTSIDE RECORDS SUMMARY | 2024-10-11 08:34 | XMS_ITS | Encounter Summary ---
Author Organization [facility] Address [address] [place] [address] Care Team Providers Care Research Consultant Name Role Phone Eileen Barry MD Primary Care Provider Unavailable Reason for Visit * Reason Onset Date Comments Error 05/17/2019 Encounter Details Date Type Department Care Team Description 05/17/2019 Telephone Gastroenterology - [address] [place] [address] Chas Fuentes MD Error Social History Tobacco Use Types Packs/Day Years Used Date Smoking Tobacco: Never Smokeless Tobacco: Never Alcohol Use Standard Drinks/Week Comments No 0 (1 standard drink = 0.6 oz pur e alcohol) Sex Assigned at Date Recorded Not on file documented as of this encounter Plan of Treatment Not on file documented as of this encounter Visit Diagnoses Not on filedocumented in this encounter Care Teams Research Consultant Relationship Specialty Start Date End Date Eileen Barry MD PCP - General Internal Medicine 05/05/17 documented as of this encounter
--- OUTSIDE RECORDS SUMMARY | 2024-10-11 08:34 | XMS_ITS | Encounter Summary ---
Author Organization [facility] Address [address] [facility] [place] [address] Care Team Providers Care Saxophone Teacher Name Role Phone Eileen Barry MD Primary Care Provider Unavailable Reason for Visit * Reason Onset Date Comments Provider Call Back 07/19/2019 Encounter Details Date Type Department Care Team Description 07/19/2019 Telephone Adult Medicine - [address] [address] Eileen Barry MD Provider Call Back Social History Tobacco Use Types Packs/Day Years Used Date Smoking Tobacco: Never Smokeless Tobacco: Never Alcohol Use Standard Drinks/Week Comments No 0 (1 standard drink = 0.6 oz pur e alcohol) Sex Assigned at Date Recorded Not on file documented as of this encounter Miscellaneous Notes * Telephone Encounter - Eileen Barry MD - 07/22/2019 12:59 PM EST Spoke to patient, he recently had colonoscopy. He requested for the results of the colonoscopy and the biopsy. Information and I briefly gave all information regarding the colonoscopy and the biopsy results. Also informed mesalamine suppository was prescribed by Dr. Fuentes. Advised him to call Dr. Fuentes's office to get more information. Advised to keep up the appointment as scheduled. Patient verbalized understanding. * Telephone Encounter - Seble Ramos - 07/21/2019 3:39 PM EST Patient returning Dr. Porras call. * Telephone Encounter - Eileen Barry MD - 07/21/2019 1:24 PM EST Called patient and left a message to call back. We will try again later. * Telephone Encounter - Debby Recinos - 07/19/2019 1:35 PM EST Caller requesting call back from provider: Eileen Barry Is the caller the patient? YES If caller is not the patient, what is the callers name? N/A Callers relationship to patient? N/A If person calling is not the patient themselves, is there a verbal release in FYI or permanent comments for this person: NO Reason for call back: Patient is requesting to speak to pcp to discuss the latest testing he had done. Please advise. Caller offered to speak with the nurse for assistance: YES Response: Patient offered to speak with nurse to assist them: refused offer documented in this encounter Plan of Treatment Not on file documented as of this encounter Visit Diagnoses Not on filedocumented in this encounter Care Teams Saxophone Teacher Relationship Specialty Start Date End Date Eileen Barry MD PCP - General Internal Medicine 05/05/17 documented as of this encounter
--- OUTSIDE RECORDS SUMMARY | 2024-10-11 08:34 | XMS_ITS | Encounter Summary ---
Author Organization [facility] Address [address] [place] [address] Care Team Providers Care Deputy County Counsel Name Role Phone Eileen Barry MD Primary Care Provider Unavailable Encounter Details Date Type Department Care Team Description 07/09/2019 Orders Only Medical Records [address] [place] [address] Chas Fuentes MD Social History Tobacco Use Types Packs/Day Years Used Date Smoking Tobacco: Never Smokeless Tobacco: Never Alcohol Use Standard Drinks/Week Comments No 0 (1 standard drink = 0.6 oz pur e alcohol) Sex Assigned at Date Recorded Not on file documented as of this encounter Plan of Treatment Not on file documented as of this encounter Procedures Procedure Name Priority Date/Time Associated Diagnosis Comments OUTSIDE PATHOLOGY Routine 2019 documented in this encounter Results * OUTSIDE PATHOLOGY (2019) Chas Fuentes MD OUTSIDE LAB documented in this encounter Visit Diagnoses Not on filedocumented in this encounter Care Teams Deputy County Counsel Relationship Specialty Start Date End Date Eileen Barry MD PCP - General Internal Medicine 05/05/17 documented as of this encounter
--- OUTSIDE RECORDS SUMMARY | 2024-10-11 08:34 | XMS_ITS | Encounter Summary ---
Author Organization [facility] Address [address] [facility] [place] [address] Care Team Providers Care Apprentice Painter Neckties Name Role Phone Eileen Barry MD Primary Care Provider Unavailable Encounter Details Date Type Department Care Team Description 09/14/2019 Refill Internal Medicine - [address], [address] [place] [address] Eileen Barry MD Social History Tobacco Use Types Packs/Day [...] on filedocumented in this encounter Care Teams Apprentice Painter Neckties Relationship Specialty Start Date End Date Eileen Barry MD PCP - General Internal Medicine 05/05/17 documented as of this encounter
--- OUTSIDE RECORDS SUMMARY | 2024-10-11 08:34 | XMS_ITS | Continuity of Care Document ---
Author Organization [facility] Address [address] [address],[address] [place] [address] Phone Care Team Providers Care Hardness Tester Name Role Phone Z-Converted, Provider Unavailable Unavailabl [...] Date Provider Providers Copied on Encounter [facility], [address] [place] [address],[address], [place], [place], [id number], [place] tel:[phone] [facility] Cellulitis and abscess of other specified sites 7 Z-Convert ed Provider. . [facility], [address] [place] [address],[address], [place], [place], [id number], [place] tel:[phone] 2 Converted Locations No Information 7 Z-Convert ed Provider. . [facility], [address] [place] [address],[address], [place], [place], [id number], [place] tel:[phone] [facility] Rash and other nonspecific skin eruption 7 Z-Convert ed Provider. . [facility], [address], [place], [place], [id number], [place] tel:[phone] 2 Converted Locations No Information 200 7 [...]
--- OUTSIDE RECORDS SUMMARY | 2024-10-11 08:34 | XMS_ITS | Encounter Summary ---
Author Organization [facility] Address [address] [facility] [place] [address] Care Team Providers Care Category Manager Name Role Phone Eileen Barry MD Primary Care Provider Unavailable Encounter Details Date Type Department Care Team Description 09/14/2019 Refill Internal Medicine - [address], [address] [place] [address] Eileen Barry MD Social History Tobacco Use [...] on filedocumented in this encounter Care Teams Category Manager Relationship Specialty Start Date End Date Eileen Barry MD PCP - General Internal Medicine 05/05/17 documented as of this encounter
--- OUTSIDE RECORDS SUMMARY | 2024-10-11 08:34 | XMS_ITS | Encounter Summary ---
Author Organization [facility] Address [address] [place] [address] Care Team Providers Care Image Editor Name Role Phone Eileen Barry MD Primary Care Provider Unavailable Encounter Details Date Type Department Care Team Description 05/09/2017 Release of Information Medical Records [address] [place] [id number] Abstract, Provider Social History Tobacco Use Types Packs/Day Years Used Date Smoking Tobacco: Never Alcohol Use Standard Drinks/Week Comments No 0 (1 standard drink = 0.6 oz pur e alcohol) Sex Assigned at Date Recorded Not on file documented as of this encounter Plan of Treatment Not on file documented as of this encounter Visit Diagnoses Not on filedocumented in this encounter Care Teams Image Editor Relationship Specialty Start Date End Date Eileen Barry MD PCP - General Internal Medicine 05/05/17 documented as of this encounter
[2024-10-11 10:36] LABS: MANUAL DIFF FLAG NO
[2024-10-11 10:47] LABS: Basophils Absolute Auto 0.1 X10*3/uL (0.0-0.2); Eosinophils Absolute Auto 0.5 X10*3/uL (0.0-0.4); Eosinophils Percent Auto 7.6 % (0-4); Hematocrit 41.7 % (42.0-52.0); Hemoglobin 13.8 g/dl (14.0-18.0); Imm Gran Abs Auto 0.02 X10*3/uL (0.00-0.03); Imm Gran Pct Auto 0.3 % (0.0-0.4); Lymphocytes Absolute Auto 1.9 X10*3/uL (1.2-4.9); Mean Corpuscular HGB Conc 33.1 g/dl (31.0-36.0); Mean Corpuscular Hemoglobin 31.4 pg (27.0-33.0); Mean Platelet Volume 11.1 fL (9.4-12.4); Monocytes Absolute Auto 0.7 X10*3/uL (0.1-1.2); Monocytes Percent Auto 11.2 % (2-11); Neutrophils Absolute Auto 2.9 x10*3/uL (2.0-8.3); Neutrophils Percent Auto 47.9 % (45-73); Platelet Count 255 X10*3/uL (160-400); Red Blood Count 4.39 X10*6/uL (4.60-5.80); Red Cell Distribution Width 13.2 % (11.0-16.0); White Blood Count 6.1 X10*3/uL (4.8-10.8)
[2024-10-11 11:16] LABS: Alanine Aminotransferase 68 U/L (0-40); Albumin Level 4.1 g/dL (3.5-5.0); Alkaline Phosphatase 52 U/L (39-117); Anion Gap 9 (12-20); Aspartate Amino Transferase 60 U/L (5-37); Bilirubin Total 0.6 mg/dL (0.0-1.0); Blood Urea Nitrogen 14 mg/dL (9-16); Calcium 9.1 mg/dL (8.4-10.2); Carbon Dioxide 28 mmol/L (22-29); Chloride 109 mmol/L (96-108); Estimated Glomerular Filt Rate > 60; Glucose Fasting 101 mg/dL (60-99); Lipase 25 U/L (8-78); Potassium 4.1 mmol/L (3.3-5.1); Sodium 142 mmol/L (135-145); Total Protein 6.7 g/dL (6.5-8.0)
== END 2024-10-11 08:14 | disposition home or self-care (01) ==
LOC: HO.HMGCLDS 08:13
PROVIDERS: PCP Internal Medicine; Visit Provider Internal Medicine
DX: I10 Essential (primary) hypertension (principal); R79.89 Other specified abnormal findings of blood chemistry; E55.9 Vitamin D deficiency, unspecified; E78.9 Disorder of lipoprotein metabolism, unspecified
CPT/HCPCS: 36415; 80053; 83690; 85025

== ENCOUNTER 2024-10-12 14:47 | Outpatient (AMB) | payer OTHER, SELFPAY ==
[2024-10-12 14:51] VITALS: BP 130/76; PULSE 78; O2SAT 98; BMI 27.8
--- NOTE | 2024-10-12 14:51 | A.OFFPC_ITS ---
Vital Signs 10/12/24 14:51 Height 5 ft 7 in Weight 177 lb 8 oz BMI 27.8 BP 130/76 Blood Pressure Location Lt brachial Position Sitting Pulse 78 Pulse Source Pulse Oximeter Pulse Oximetry (%) 98 Oxygen Delivery Method Room Air Intake Visit Reasons: 4m follow up Allergies No Known Allergies Allergy (Verified 10/12/24 14:53) Medication List - Last Reconciled 10/12/[address] MD atenolol-chlorthalidone 50-25 mg 1 tab PO DAILY ergocalciferol (vitamin D2) 1,250 mcg PO QWEEK 90 days ezetimibe (Zetia) 10 mg PO DAILY flaxseed oil 1,000 mg PO DAILY multivitamin 1 tab PO DAILY omega 9-ptt-ron-fish oil 1,000 (120-180) mg (Fish Oil) 1 cap PO DAILY Tobacco use date assessed: 10/12/24 Dental Screening Dental Screen Date: 10/12/24 Did you have a dental visit in the last 12 months?: Yes Did you have a dental problem in the last 6 months where you did not have access to dental care?: No Was dental information given to patient?: Patient has dentist HPI 4m follow up HPI Details History - The patient is a 49-year-old male pres enting with a regular follow-up visit. - Reports regular monitoring of blood pr essure with readings consistently between 120-130 mmHg at home. - Reports past history of hemorrhoids wh ich underwent surgical intervention last year in [facility]. - Noted a decline in hemoglobin from 15. 3 in May to 13.8 currently, indicating mild iron deficiency anemia. - Has a fasting blood sugar level of 101 mg/dL, placing him in the prediabetic range, with a BMI of 27.8, indicating overweight status. - Previously underwent colonoscopy last year in [facility] with no current issues reported post-surgery. - Reports stable but slightly worsened l iver enzymes, with a known diagnosis of nonalcoholic fatty liver disease, advised to lose about 10 pounds. Medications - atenolol Chlorthalidone for hypertensi on - Zetia for cholesterol management - Vitamin D supplement - Flaxseed oil and [facility]-3 supplements Problem List - Essential Hypertension - Iron Deficiency Anemia - Hemorrhoids - Prediabetes - Obesity - Nonalcoholic Fatty Liver Disease Diagnostic results - Labs: - Hemoglobin decreased from 15.3 in May to 13.8 currently. - Fasting blood glucose: 101 mg/dL - Liver enzymes are slightly worse than before but not significantly elevated. - Tests and Diagnostics: - Ultrasound in August of last year confirmed nonalcoholic fatty liver disease. - Colonoscopy done last year in [facility] no current issues reported. Patient Instructions - Continue monitoring your blood pressur e at home. - Take a multivitamin with iron suppleme nt as advised. - Aim to lose about 10 pounds to help ma nage obesity and fatty liver disease. - Follow a balanced diet and engage in r egular physical activity to manage prediabetes. - Bring any medical reports from [place] o r any other tests done outside to future appointments. - Schedule blood work before each follow -up visit every four months. Review of Systems General: No fever no chills neurological: No headaches no dizziness ear nose throat: No sore throat no hearing difficulty no ear pain cardiovascular: No syncope, no chest pain, no palpitations gastrointestinal: No nausea vomiting or diarrhea endocrine: No polyuria polydipsia no heat intolerance genitourinary: No dysuria skin: No new complaints Physical Exam general: No acute distress HEENT: No acute findings neck: Supple respiratory system: Able to talk in full sentences, no audible wheeze no stridor cardiovascular: S1-S2 RRR gastrointestinal: Hemorrhoids present extremities: No new findings 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[employer] ADULTS: Alert awake oriented x3 motor sensory intact skin: Normal turgor PFSH Medical History Pre-op examination Encounter for general adult medical examination with abnormal findings Surgical History History of esophagogastroduodenoscopy (EGD) H/O lithotripsy H/O colonoscopy Family History Mother Breast cancer Social History Housing: House Patient Tobacco Use Status: Never used Tobacco e-Cigarette/Vaping Use: Never Used service: No Current occupational status: employed Cognitive needs: No Hearing needs: No Vision needs: Yes Questionnaire PHQ-9 Over the last 2 weeks, how often have you been bothered by any of the following problems? 85329 - PHQ-9 Billing: Patient declined-do not bill Source: Developed by Drs. Corbin Porter, Anthony Alegria and colleagues, with an educational basim from [employer]. Thrive Questionnaire Date Thrive assessed: 10/12/24 I am a: Patient What is your living situation today?: I have a steady place to live Within the past 12 months, did the food you bought not last and you didn't have the money to get more?: Never true Within the past 12 months, did you worry whether your food would run out before you got money to buy more?: Never true Do you have trouble paying for medicines?: No Do you have trouble getting transportation to medical appointments?: No Do you have trouble paying your heating and electricity bill?: No Do you have trouble taking care of your child, family member or friend?: No Do you have trouble with day-to-day activities such as bathing, preparing meals, shopping, managing finances, etc.?: No Are you currently unemployed and looking for a job?: No Are you interested in more education?: No Please select the resources that you would like help with: None Currently or been in a relationship where the following occur: No concerns reported THRIVE Score: 0 AUDIT C Alcohol Use Questionnaire (AUDIT-C) 1. How often do you have a drink containing alcohol?: Never 3. How often do you have six or more drinks on one occasion?: Never Total Score: 0 Score Reviewed/Action Taken: Yes KIRBY-7 AMB Questionnaire KIRBY-7 Date KIRBY - 7 assessed: 10/12/24 Feeling nervous, anxious, or on edge: 0 = Not at all Not being able to stop or control worryin = Not at all Worrying too much about different things: 0 = Not at all Trouble relaxin = Not at all Being so restless that it is hard to sit still: 0 = Not at all Becoming easily annoyed or irritable: 0 = Not at all Feeling afraid as if something awful might happen: 0 = Not at all Total KIRBY-7 score (0-4 normal; 5-9 mild; 10-14 moderate; 15-21 severe): 0 Source: Developed by Marion Ludwig Kurt Kroenke and colleagues, with an educational basim from [employer]. KIRBY-7 Assessment Billing KIRBY-7 Assessment Tool: KIRBY-7 Assessment 72736 Physical exam (Primary Care) Vital Signs: Last Vital Signs Pulse 78 10/12/24 14:51 BP 130/76 10/12/24 14:51 Pulse Ox 98 10/12/24 14:51 Oxygen Delivery Method Room Air 10/12/24 14:51 BMI result Body Mass Index 27.8 Tobacco/Smoking Status: Tobacco use Status Tobacco use date assessed 10/12/24 10/12/24 14:54 Patient Tobacco Use Status Never used Tobacco 10/12/24 14:54 e-Cigarette/Vaping Use Never Used 10/12/24 14:54 Thrive Assessment: Date of Thrive Assessment Date Thrive assessed 10/12/24 10/12/24 14:54 Currently or been in a relationship where the following occur: No concerns reported Coding Level of Care Code Est Pt Level 4 (38985) Diagnoses Hypertension, essential I10 LFT elevation R79.89 Lipid disorder E78.9 Ulcerative colitis with complication, unspecified location K51.919 Ulcerative colitis location: unspecified ulcerative colitis location Digestive disease complication type: unspecified complication Vitamin D deficiency E55.9 Other iron deficiency anemia D50.8 Iron deficiency anemia type: other iron deficiency Overweight (BMI 25.0-29.9) E66.3 Additional Codes KIRBY-7 Assessment Billing - KIRBY-7 Assessment Tool: KIRBY-7 Assessment 94914 ([id number]) Assessment & Plan Assessment & Plan (1) Hypertension, essential: Code(s): I10 - Essential (primary) hypertension Category: Medical (2) LFT elevation: Code(s): R79.89 - Other specified abnormal findings of blood chemistry Category: Medical (3) Lipid disorder: Code(s): E78.9 - Disorder of lipoprotein metabolism, unspecified Category: Medical (4) Ulcerative colitis: Code(s): K51.90 - Ulcerative colitis, unspecified, without complications Category: Medical Qualifiers: Ulcerative colitis location: unspecified ulcerative colitis location Digestive disease complication type: unspecified complication Qualified Code(s): K51.919 - Ulcerative colitis, unspecified with unspecified complications (5) Vitamin D deficiency: Code(s): E55.9 - Vitamin D deficiency, unspecified Category: Medical (6) Iron deficiency anemia: Code(s): D50.9 - Iron deficiency anemia, unspecified Category: Medical Qualifiers: Iron deficiency anemia type: other iron deficiency Qualified Code(s): D50.8 - Other iron deficiency anemias (7) Overweight (BMI 25.0-29.9): Code(s): E66.3 - Overweight Category: Medical Plan History - The patient is a 49-year-old male with a history of ulcerative colitis, presenting with a regular follow-up visit. Patient is established with [facility] for the management of ulcerative colitis and is not taking any medication at this time - Reports regular monitoring of blood pressure with readings consistently betwee n 120-130 mmHg at home. - Reports past history of hemorrhoids which underwent surgical intervention last year in [place]. - Noted a decline in hemoglobin from 15.3 in May to 13.8 currently, indic ating mild iron deficiency anemia. - Has a fasting blood sugar level of 101 mg/dL, placing him in the prediabetic range, with a BMI of 27.8, indicating overweight status. - Previously underwent colonoscopy last year in [place] with no current issues reported post-surgery. - Reports stable but slightly worsened liver enzymes, with a known diagnosis of nonalcoholic fatty liver disease, advised to lose about 10 pounds. Medications - atenolol Chlorthalidone for hypertension - Zetia for cholesterol management - Vitamin D supplement - Flaxseed oil and [facility]-3 supplements Problem List - Essential Hypertension - Iron Deficiency Anemia - Hemorrhoids - Prediabetes - Obesity - Nonalcoholic Fatty Liver Disease Diagnostic results - Labs: - Hemoglobin decreased from 15.3 in May to 13.8 currently. - Fasting blood glucose: 101 mg/dL - Liver enzymes are slightly worse than before but not significantly elevated. - Tests and Diagnostics: - Ultrasound in August of last year confirmed nonalcohol ic fatty liver disease. - Colonoscopy done last year in [place] with no current issues reported. Patient Instructions - Continue monitoring your blood pressure at home. - Take a multivitamin with iron supplement as advised. - Aim to lose about 10 pounds to help manage obesity and fatty liver disease. - Follow a balanced diet and engage in regular physical activity to manage prediabetes. - Bring any medical reports from [place] or any other tests done outside to future appointments. - Schedule blood work before each follow-up visit every four months. Orders: Orders Comprehensive Brick. Panel Fast 3 Months D50.8 - Other iron deficiency anemias, E55.9 - Vitamin D deficiency, unspecified, E66.3 - Overweight, E78.9 - Disorder of lipoprotein metabolism, unspecified, I10 - Essential (primary) hypertension, K51.919 - Ulcerative colitis, unspecified with unspecified complications, R79.89 - Other specified abnormal findings of blood chemistry Vitamin B12 3 Months D50.8 - Other iron deficiency anemias, E55.9 - Vitamin D deficiency, unspecified, E66.3 - Overweight, E78.9 - Disorder of lipoprotein metabolism, unspecified, I10 - Essential (primary) hypertension, K51.919 - Ulcerative colitis, unspecified with unspecified complications, R79.89 - Other specified abnormal findings of blood chemistry Hemoglobin A1c 3 Months D50.8 - Other iron deficiency anemias, E55.9 - Vitamin D deficiency, unspecified, E66.3 - Overweight, E78.9 - Disorder of lipoprotein metabolism, unspecified, I10 - Essential (primary) hypertension, K51.919 - Ulcerative colitis, unspecified with unspecified complications, R79.89 - Other specified abnormal findings of blood chemistry Complete Blood Count Auto Diff 3 Months D50.8 - Other iron deficiency anemias, E55.9 - Vitamin D deficiency, unspecified, E66.3 - Overweight, E78.9 - Disorder of lipoprotein metabolism, unspecified, I10 - Essential (primary) hypertension, K51.919 - Ulcerative colitis, unspecified with unspecified complications, R79.89 - Other specified abnormal findings of blood chemistry Lipid Panel 3 Months D50.8 - Other iron deficiency anemias, E55.9 - Vitamin D deficiency, unspecified, E66.3 - Overweight, E78.9 - Disorder of lipoprotein metabolism, unspecified, I10 - Essential (primary) hypertension, K51.919 - Ulcerative colitis, unspecified with unspecified complications, R79.89 - Other specified abnormal findings of blood chemistry Vitamin D 25-OH (D2 and D3) 3 Months D50.8 - Other iron deficiency anemias, E55.9 - Vitamin D deficiency, unspecified, E66.3 - Overweight, E78.9 - Disorder of lipoprotein metabolism, unspecified, I10 - Essential (primary) hypertension, K51.919 - Ulcerative colitis, unspecified with unspecified complications, R79.89 - Other specified abnormal findings of blood chemistry Ferritin 3 Months D50.8 - Other iron deficiency anemias, E55.9 - Vitamin D deficiency, unspecified, E66.3 - Overweight, E78.9 - Disorder of lipoprotein metabolism, unspecified, I10 - Essential (primary) hypertension, K51.919 - Ulcerative colitis, unspecified with unspecified complications, R79.89 - Other specified abnormal findings of blood chemistry Medications: Refilled atenolol-chlorthalidone 50-25 mg 1 tab PO DAILY 90 tabs 1RF ergocalciferol (vitamin D2) 1,250 mcg PO QWEEK 90 days 13 caps 0RF ezetimibe (Zetia) 10 mg PO DAILY 90 tabs 1RF
--- OUTSIDE RECORDS SUMMARY | 2024-10-12 18:04 | XMS_ITS | Continuity of Care Document ---
Author Organization [facility] Address [address] [address],[address] [place] [address] Phone Care Team Providers Care Stemmer Machine Name Role Phone Z-Converted, Provider Unavailable Unavailabl [...] Diagnoses Date Provider Providers Copied on Encounter [facility], [address] [place] [address],[address], [place], [place], [id number], [place] tel:[phone] [facility] Cellulitis and abscess of other specified sites 7 Z-Convert ed Provider. . [facility], [address] [place] [address],[address], [place], [place], [id number], [place] tel:[phone] 2 Converted Locations No Information 7 Z-Convert ed Provider. . [facility], [address] [place] [address],[address], [place], [place], [id number], [place] tel:[phone] [facility] Rash and other nonspecific skin eruption 7 Z-Convert ed Provider. . [facility], [address], [place], [place], [id number], [place] tel:[phone] 2 Converted Locations No Information 200 7 [...]
--- OUTSIDE RECORDS SUMMARY | 2024-10-12 18:04 | XMS_ITS | Encounter Summary ---
Author Organization [facility] Address [address] [place] [address] Care Team Providers Care Meat Grading Machine Operator Name Role Phone Eileen Barry MD Primary Care Provider Unavailable Reason for Visit * Reason Onset Date Comments Medication 05/17/2019 prep Encounter Details Date Type Department Care Team Description 05/17/2019 Refill Gastroenterology - [address] [id number] Chas Fuentes MD Medication (prep) Social History Tobacco Use Types Packs/Day Years [...] on filedocumented in this encounter Care Teams Meat Grading Machine Operator Relationship Specialty Start Date End Date Eileen Barry MD PCP - General Internal Medicine 05/05/17 documented as of this encounter
--- OUTSIDE RECORDS SUMMARY | 2024-10-12 18:04 | XMS_ITS | Encounter Summary ---
Author Organization [facility] Address [address] [place] [address] Care Team Providers Care Professor Of Geology Name Role Phone Eileen Barry MD Primary Care Provider Unavailable Reason for Visit * Reason Onset Date Comments Medication 09/21/2019 Provider Call Back 09/21/2019 Encounter Details Date Type Department Care Team Description 09/21/2019 Telephone Gastroenterology - [address] [place] [address] Chas Fuentes MD Medication; Provider Call Back Social History Tobacco Use Types Packs/Day Years Used Date Smoking Tobacco: Never Smokeless Tobacco: Never Alcohol Use Standard Drinks/Week Comments No 0 (1 standard drink = 0.6 oz pur e alcohol) Sex Assigned at Date Recorded Not on file documented as of this encounter Miscellaneous Notes * Telephone Encounter - Charis Ratliff M.A. - 09/22/2019 10:57 AM EDT Pt wants Alix sent to [facility]: [facility] * Telephone Encounter - Sharona Hernandez - 09/21/2019 11:44 AM EDT Patient calling inquiring about medication mesalamine (LIALDA)... Would like a call back ... Pleaseadvise documented in this encounter Plan of Treatment Not on file documented as of this encounter Visit Diagnoses Not on filedocumented in this encounter Care Teams Professor Of Geology Relationship Specialty Start Date End Date Eileen Barry MD PCP - General Internal Medicine 05/05/17 documented as of this encounter
--- OUTSIDE RECORDS SUMMARY | 2024-10-12 18:04 | XMS_ITS | Encounter Summary ---
Author Organization [facility] Address [address] [place] [address] Care Team Providers Care Chief Design Engineer Name Role Phone Eileen Barry MD Primary Care Provider Unavailable Encounter Details Date Type Department Care Team Description 07/09/2019 Orders Only Medical Records [address] [place] [address] Chas Fuentes MD Social History Tobacco Use [...] on filedocumented in this encounter Care Teams Chief Design Engineer Relationship Specialty Start Date End Date Eileen Barry MD PCP - General Internal Medicine 05/05/17 documented as of this encounter
--- OUTSIDE RECORDS SUMMARY | 2024-10-12 18:04 | XMS_ITS | Encounter Summary ---
Author Organization [facility] Address [address] [place] [address] Care Team Providers Care Tar Kettle Runner Name Role Phone Eileen Barry MD Primary Care Provider Unavailable Encounter Details Date Type Department Care Team Description 05/09/2017 Release of Information Medical Records [address] [place] [id number] Abstract, Provider Social History Tobacco Use Types [...] on filedocumented in this encounter Care Teams Tar Kettle Runner Relationship Specialty Start Date End Date Eileen Barry MD PCP - General Internal Medicine 05/05/17 documented as of this encounter
--- OUTSIDE RECORDS SUMMARY | 2024-10-12 18:04 | XMS_ITS | Encounter Summary ---
Author Organization [facility] Address [address] [facility] [place] [address] Care Team Providers Care Customer Care Coordinator Name Role Phone Eileen Barry MD Primary Care Provider Unavailable Encounter Details Date Type Department Care Team Description 09/14/2019 Refill Internal Medicine - [address], [address] [place] [address] Eileen Barry MD Social History Tobacco Use [...] on filedocumented in this encounter Care Teams Customer Care Coordinator Relationship Specialty Start Date End Date Eileen Barry MD PCP - General Internal Medicine 05/05/17 documented as of this encounter
== END 2024-10-12 15:55 | disposition home or self-care (01) ==
LOC: HO.HMCC 14:48
PROVIDERS: PCP Internal Medicine; Visit Provider Internal Medicine
DX: I10 Essential (primary) hypertension (principal); R79.89 Other specified abnormal findings of blood chemistry; E78.9 Disorder of lipoprotein metabolism, unspecified; K51.919 Ulcerative colitis, unspecified with unspecified complications; E55.9 Vitamin D deficiency, unspecified; D50.8 Other iron deficiency anemias; E66.3 Overweight

== ENCOUNTER → 2024-10-12 14:47 | Outpatient (BNVA) | payer OTHER, SELFPAY | PROVIDERS: PCP Internal Medicine; Visit Provider Internal Medicine | DX: I10 Essential (primary) hypertension (principal); R79.89 Other specified abnormal findings of blood chemistry; E78.9 Disorder of lipoprotein metabolism, unspecified; K51.919 Ulcerative colitis, unspecified with unspecified complications; E55.9 Vitamin D deficiency, unspecified; D50.8 Other iron deficiency anemias; E66.3 Overweight; Z68.27 Body mass index [BMI] 27.0-27.9, adult | CPT/HCPCS: 96127 ==

== ENCOUNTER 2025-03-11 15:00 | Outpatient (AMB) | payer OTHER, SELFPAY ==
--- OUTSIDE RECORDS SUMMARY | 2007-04-16 20:00 | XMS_ITS | Continuity of Care Document ---
Author Organization [facility] Address [address] [address],[address] [place] [address] Phone Care Team Providers Care Asset Protection Officer Name Role Phone Z-Converted, Provider Unavailable Unavailabl [...] Diagnoses Date Provider Providers Copied on Encounter [facility], [address] [place] [address],[address], [place], [place], [id number], [place] tel:[phone] [facility] Cellulitis and abscess of other specified sites 7 Z-Convert ed Provider. . [facility], [address] [place] [address],[address], [place], [place], [id number], [place] tel:[phone] 2 Converted Locations No Information 7 Z-Convert ed Provider. . [facility], [address] [place] [address],[address], [place], [place], [id number], [place] tel:[phone] [facility] Rash and other nonspecific skin eruption 7 Z-Convert ed Provider. . [facility], [address], [place], [place], [id number], [place] tel:[phone] 2 Converted Locations No Information 200 7 Z-Convert ed Provider. . Family History Family Member Type Diagnosis Age At Onset No Information Payers Payer name Insurance type Covered democrat ID Authoriza tion(s) No Information Social History [...]
[2025-03-11 15:07] VITALS: BP 130/92; PULSE 73; O2SAT 98; BMI 26.9
--- NOTE | 2025-03-11 15:07 | A.OFFPC_ITS ---
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 Inventory Control Required: No Accompanied by: Self / Same As Patient Allergies No Known Allergies Allergy (Verified 03/11/25 15:10) Medication List - Last Reconciled 03/11/[address] MD atenolol-chlorthalidone 50-25 mg 1 tab PO DAILY ergocalciferol (vitamin D2) 1,250 mcg PO QWEEK 90 days ezetimibe (Zetia) 10 mg PO DAILY flaxseed oil 1,000 mg PO DAILY multivitamin 1 tab PO DAILY omega 7-mho-rpq-fish oil 1,000 (120-180) mg (Fish Oil) 1 cap PO DAILY Tobacco use date assessed: 03/11/25 Dental Screening Dental Screen Date: 03/11/25 Did you have a dental visit in the last 12 months?: Yes Did you have a dental problem in the last 6 months where you did not have access to dental care?: No Was dental information given to patient?: Patient has dentist HPI PE HPI Details PE The patient is a 49-year-old male presenting with management of blood pressure and cardiovascular risk. Essential Hypertension: - The patient reports home blood pressur e readings averaging around 128-130/89-90. - Current blood pressure recorded in the office is 130/92. - Consistently elevated readings noted, with some variation internally at home. Ulcerative Colitis: - The patient reports occasional blood i n stools, with symptoms appearing intermittently over several months. - He has not had a follow-up for ulcerat laurent colitis since relocation. - Previous colonoscopy conducted five ye ars ago at another facility. Foot Pain: - Occasional pain reported in the foot, without constant symptoms. - The patient attributes episodes of ashley n to sitting for extended periods in his work role. 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 - Primarily sedentary during work hours - Does not currently engage in regular e xercise - Takes spay-rgd-lrebdkt medications for constipation management as needed Health Maintenance - Recommendations for frequent colonosco py due to ulcerative colitis - Regular blood pressure monitoring at h ome - Recommendations to initiate exercise f or muscle and health improvement Medications - Atenolol/chlorthalidone 50-25 mg for h ypertension - Vitamin D supplement - Zetia for lipid control - Flexate oil and [place]-3 for cholestero l management - Occasional use of bexy-lnf-fwyqgtq Oswaldo atips for constipation Employment - 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 - Schedule a visit with a gastroenterolo gist for ulcerative colitis follow-up. - Begin a regular exercise routine to im prove health and address foot pain. - Monitor symptoms of ulcerative colitis and report any changes. f/u 3-4 M Review of Systems - General: No fever no chills - Neurological: No headaches no dizzin ess - Ear nose throat: No sore throat no hearing difficulty no ear pain - Cardiovascular: No syncope, no chest pain, no palpitations - Gastrointestinal: No nausea vomiting or diarrhea - Endocrine: No polyuria polydipsia no heat intolerance - Genitourinary: No dysuria - Skin: No new complaints Physical Exam General: Cooperative, healthy appearing, comfortable, no acute distress Orientation: Patient oriented x3 Head: Normal to inspection Ears: Within normal limit visually Nose: Normal external nose present Face and sinus: Normal facial exam Eyes: Appearance normal, extraocular movement intact pupils reactive Neck: Normal visual inspection and supple Respiratory: Normal respiratory effort and able to speak in complete sentences. Clear to auscultation, no stridor Cardiovascular: S1 and S2 RRR GI: Normal to inspection. Soft to palpation and nontender. Skin: Turgor normal, no acute findings. Neuro: Patient oriented x3, motor sensory intact, balance intact, tandem pass Extremities: Normal to inspection. Reports occasional foot pain [facility] Medical History (Updated 03/14/25 @ 17:[address] MD) Encounter for general adult medical examination with abnormal findings Pre-op examination Surgical History History of esophagogastroduodenoscopy (EGD) H/O lithotripsy H/O colonoscopy Family History Mother Breast cancer Social History Housing: House Patient Tobacco Use Status: Never used Tobacco e-Cigarette/Vaping Use: Never Used service: No Current occupational status: employed Cognitive needs: No Hearing needs: No Vision needs: Yes Questionnaire PHQ-9 Over the last 2 weeks, how often have you been bothered by any of the following problems? 1. Little interest or pleasure in doing things: not at all 2. Feeling down, depressed, or hopeless: not at all 3. Trouble falling or staying asleep, or sleeping too much: not at all 4. Feeling tired or having little energy: not at all 5. Poor appetite or overeating: not at all 6. Feeling bad about yourself - or that you are a failure or have let yourself or your family down: not at all 7. Trouble concentrating on things, such as reading the newspaper or watching television: not at all 8. Moving or speaking so slowly that other people could have noticed. Or the opposite - being so fidgety or restless that you have been moving around a lot more than usual: not at all 9. Thoughts that you would be better off or of hurting yourself in some way: not at all Total score: 0 Depression Screening Interpretation: Negative Depression Screening Done: Yes 10638 - PHQ-9 Billing: Yes Source: Developed by Drs. Corbin Porter, Marion Goodman, Anthony Law and colleagues, with an educational basim from [employer]. Thrive Questionnaire Date Thrive assessed: 10/12/24 I am a: Patient What is your living situation today?: I have a steady place to live Within the past 12 months, did the food you bought not last and you didn't have the money to get more?: I choose not to answer this question Within the past 12 months, did you worry whether your food would run out before you got money to buy more?: I choose not to answer this question Do you have trouble paying for medicines?: I choose not to answer this question Do you have trouble getting transportation to medical appointments?: No Do you have trouble paying your heating and electricity bill?: No Do you have trouble taking care of your child, family member or friend?: No Do you have trouble with day-to-day activities such as bathing, preparing meals, shopping, managing finances, etc.?: No Are you currently unemployed and looking for a job?: No Are you interested in more education?: No Please select the resources that you would like help with: None Currently or been in a relationship where the following occur: I choose not to answer THRIVE Score: 0 AUDIT C Alcohol Use Questionnaire (AUDIT-C) 1. How often do you have a drink containing alcohol?: Never Total Score: 0 KIRBY-7 AMB Questionnaire KIRBY-7 Date KIRBY - 7 assessed: 03/11/25 Feeling nervous, anxious, or on edge: 0 = Not at all Not being able to stop or control worryin = Not at all Worrying too much about different things: 0 = Not at all Trouble relaxin = Not at all Being so restless that it is hard to sit still: 0 = Not at all Becoming easily annoyed or irritable: 0 = Not at all Feeling afraid as if something awful might happen: 0 = Not at all Total KIRBY-7 score (0-4 normal; 5-9 mild; 10-14 moderate; 15-21 severe): 0 Source: Developed by Drs. Corbin Porter, Marion Goodman, Anthony Law and colleagues, with an educational basim from [employer]. Physical exam (Primary Care) Vital Signs: Last Vital Signs Pulse 73 03/11/25 15:07 BP 130/92 H 03/11/25 15:07 Pulse Ox 98 03/11/25 15:07 Oxygen Delivery Method Room Air 03/11/25 15:07 BMI result Body Mass Index 26.9 Tobacco/Smoking Status: Tobacco use Status Tobacco use date assessed 03/11/25 03/11/25 15:12 Patient Tobacco Use Status Never used Tobacco 03/11/25 15:10 e-Cigarette/Vaping Use Never Used 03/11/25 15:10 PHQ-9: PHQ-9 Score PHQ-9: Total score 0 03/11/25 15:27 Depression Screening Interpretation: Negative Thrive Assessment: Date of Thrive Assessment Date Thrive assessed 10/12/24 03/11/25 15:10 Currently or been in a relationship where the following occur: I choose not to answer Coding Level of Care Code Est Pt Level 3 (73086) Est Pt Prev Care 40-64y(77159) Diagnoses Encounter for general adult medical examination with abnormal findings Z00.01 Ulcerative colitis with complication, unspecified location K51.919 Digestive disease complication type: unspecified complication Ulcerative colitis location: unspecified ulcerative colitis location Other iron deficiency anemia D50.8 Iron deficiency anemia type: other iron deficiency Hypertension, essential I10 Additional Codes PHQ-9 - 25403 - PHQ-9 Billing: Yes ([id number]) Assessment & Plan Assessment & Plan (1) Encounter for general adult medical examination with abnormal findings: Code(s): Z00.01 - Encounter for general adult medical examination with abnormal findings Category: Medical (2) Ulcerative colitis: Code(s): K51.90 - Ulcerative colitis, unspecified, without complications Category: Medical Qualifiers: Digestive disease complication type: unspecified complication [facility] erative colitis location: unspecified ulcerative colitis location Qualified Code(s): K51.919 - Ulcerative colitis, unspecified with unspecified complications (3) Iron deficiency anemia: Code(s): D50.9 - Iron deficiency anemia, unspecified Category: Medical Qualifiers: Iron deficiency anemia type: other iron deficiency Qualified Code(s): D50.8 - Other iron deficiency anemias (4) Hypertension, essential: Code(s): I10 - Essential (primary) hypertension Category: Medical Plan PE The patient is a 49-year-old male presenting with management of blood pressure and cardiovascular risk. Essential Hypertension: - The patient reports home blood pressure readings averaging around 128-130/89-90. - Current blood pressure recorded in the office is 130/92. - Consistently elevated readings noted, with some variation internally at home. Ulcerative Colitis: - The patient reports occasional blood in stools, with symptoms appearing intermittently over several months. - He has not had a follow-up for ulcerative colitis since relocation. - Previous colonoscopy conducted five years ago at another facility. Foot Pain: - Occasional pain reported in the foot, without constant symptoms. - The patient attributes episodes of pain to sitting for extended periods in his work role. 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 - Primarily sedentary during work hours - Does not currently engage in regular exercise - Takes lchz-pyp-gxomvok medications for constipation management as needed Health Maintenance - Recommendations for frequent colonoscopy due to ulcerative colitis - Regular blood pressure monitoring at home - Recommendations to initiate exercise for muscle and health improvement Medications - Atenolol/chlorthalidone 50-25 mg for hypertension - Vitamin D supplement - Zetia for lipid control - Flexate oil and [place]-3 for cholesterol management - Occasional use of mwwy-par-gfntbqa Lexatips for constipation Employment - 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 - Schedule a visit with a repairer cylinder heads for ulcerative colitis follow-up. - Begin a regular exercise routine to improve health and address foot pain. - Monitor symptoms of ulcerative colitis and report any changes. f/u 3-4 M Orders: Referrals Gastroenterology Referral D50.8 - Other iron deficiency anemias, K51.919 - Ulcerative colitis, unspecified with unspecified complications Medications: New magnesium glycinate 100 mg PO .QHS 90 caps 3RF 90 days
--- OUTSIDE RECORDS SUMMARY | 2025-03-11 17:33 | XMS_ITS ---
Author Name [facility] Organization Unknown Care Team Organization Name Specialty Phone Email Start Date End Da te [facility] Termed, PROVIDER Primary Care 05/07/202201/28
== END 2025-03-11 15:30 | disposition home or self-care (01) ==
LOC: HO.HMCC 15:01
PROVIDERS: PCP Internal Medicine; Visit Provider Internal Medicine
DX: Z00.01 Encounter for general adult medical examination with abnormal findings (principal); K51.919 Ulcerative colitis, unspecified with unspecified complications; D50.8 Other iron deficiency anemias; I10 Essential (primary) hypertension

== ENCOUNTER → 2025-03-11 15:00 | Outpatient (BNVA) | payer OTHER, SELFPAY | PROVIDERS: PCP Internal Medicine; Visit Provider Internal Medicine | DX: Z00.01 Encounter for general adult medical examination with abnormal findings (principal); I10 Essential (primary) hypertension; K51.919 Ulcerative colitis, unspecified with unspecified complications; D50.8 Other iron deficiency anemias | CPT/HCPCS: 96127 ==

== ENCOUNTER 2025-03-12 09:53 | Outpatient (REF) | payer OTHER, SELFPAY ==
--- OUTSIDE RECORDS SUMMARY | 2007-04-16 20:00 | XMS_ITS | Continuity of Care Document ---
Author Organization [facility] Address [address] [address],[address] [place] [address] Phone Care Team Providers Care University Professor Name Role Phone Z-Converted, Provider Unavailable Unavailabl [...] Diagnoses Date Provider Providers Copied on Encounter [facility], [address] [place] [address],[address], [place], [place], [id number], [place] tel:[phone] [facility] Cellulitis and abscess of other specified sites 7 Z-Convert ed Provider. . [facility], [address] [place] [address],[address], [place], [place], [id number], [place] tel:[phone] 2 Converted Locations No Information 7 Z-Convert ed Provider. . [facility], [address] [place] [address],[address], [place], [place], [id number], [place] tel:[phone] [facility] Rash and other nonspecific skin eruption 7 Z-Convert ed Provider. . [facility], [address], [place], [place], [id number], [place] tel:[phone] 2 Converted Locations No Information 200 7 Z-Convert ed Provider. . Family History Family Member Type Diagnosis Age At Onset No Information Payers Payer name Insurance type Covered constitution party ID Authoriza tion(s) No Information Social History Type Description Quantity Date Captured Comments Sex Male Smoking Status No Information Chief Complaint And Reason For Visit No [...]
[2025-03-12 11:17] LABS: MANUAL DIFF FLAG NO
[2025-03-12 11:22] LABS: Hematocrit 42.9 % (42.0-52.0); Hemoglobin 14.9 g/dl (14.0-18.0); Imm Gran Abs Auto 0.03 X10*3/uL (0.00-0.03); Imm Gran Pct Auto 0.3 % (0.0-0.4); Lymphocytes Absolute Auto 2.0 X10*3/uL (1.2-4.9); Mean Corpuscular HGB Conc 34.7 g/dl (31.0-36.0); Mean Corpuscular Hemoglobin 31.7 pg (27.0-33.0); Mean Corpuscular Volume 91.3 fL (80.0-98.0); NRBC Abs Auto 0.000 X10*3/uL (0.0-0.012); NRBC Pct Auto 0.0 /100WBC (0.0-0.2); Platelet Count 277 X10*3/uL (160-400); Red Blood Count 4.70 X10*6/uL (4.60-5.80); White Blood Count 9.7 X10*3/uL (4.8-10.8)
[2025-03-12 11:33] LABS: Hemoglobin A1C 167.8736 umol/L; Total Hemoglobin (HGBA1C) 3942.1418 umol/L
[2025-03-12 12:07] LABS: Alanine Aminotransferase 56 U/L (0-40); Albumin Level 4.5 g/dL (3.5-5.0); Alkaline Phosphatase 68 U/L (39-117); Anion Gap 16 (12-20); Aspartate Amino Transferase 44 U/L (5-37); Blood Urea Nitrogen 13 mg/dL (9-16); Calcium 9.4 mg/dL (8.4-10.2); Carbon Dioxide 27 mmol/L (22-29); Chloride 103 mmol/L (96-108); Cholesterol 189 mg/dL (<200); Estimated Glomerular Filt Rate > 60; HDL Cholesterol 39 mg/dL (>40); Potassium 3.7 mmol/L (3.3-5.1); Sodium 142 mmol/L (135-145); Total Protein 7.3 g/dL (6.5-8.0); Triglycerides 152 mg/dL (<150)
[2025-03-12 12:22] LABS: Vitamin B12 380 pg/mL (200-900)
[2025-03-12 12:28] LABS: Ferritin 87 ng/mL (20-250)
[2025-03-17 17:02] LABS: Vitamin D 25-OH, D2 48 ng/mL; Vitamin D 25-OH, D3 15 ng/mL; Vitamin D 25-OH, Total 63 ng/mL (30-100)
== END 2025-03-12 09:54 | disposition home or self-care (01) ==
LOC: HO.HMGCLDS 09:53
PROVIDERS: PCP Internal Medicine; Visit Provider Internal Medicine
DX: I10 Essential (primary) hypertension (principal); E66.3 Overweight; R79.89 Other specified abnormal findings of blood chemistry; K51.919 Ulcerative colitis, unspecified with unspecified complications; D50.8 Other iron deficiency anemias; E55.9 Vitamin D deficiency, unspecified; E78.9 Disorder of lipoprotein metabolism, unspecified
CPT/HCPCS: 36415; 80053; 80061; 82306; 82607; 82728; 83036; 85025

== ENCOUNTER 2025-05-25 15:55 | Outpatient (AMB) | payer OTHER, SELFPAY ==
--- OUTSIDE RECORDS SUMMARY | 2007-04-16 19:00 | XMS_ITS | Continuity of Care Document ---
Author Organization [facility] Address [address] [address],[address] [place] [address] Phone Care Team Providers Care Plumbing Technician Name Role Phone Z-Converted, Provider Unavailable Unavailabl e Medications Medication Instructions Dosage Effective Dates (start - stop) Status Comments Bactroban Nasal 2 % Ointment apply 0.25 gm to B nostrils bid x 5 d - Active Klaron 10 % Topical Susp apply qd to scalp - Active Keflex 250 mg Cap 1 Q6H x 1week - Acti ve clobetasol 0.05 % Topical Cream apply bid to scalp prn itch - Active Advance Directives Directive Yes / No Effective Date File Name No Information Encounters Encounter Description Practice Location Reason(s) For Visit Diagnoses Date Provider Providers Copied on Encounter [facility], [address] [place] [address],[address], [place], [place], [id number], [place] tel:[phone] [facility] Cellulitis and abscess of other specified sites 7 Z-Convert ed Provider. . [facility], [address] [place] [address],[address], [place], [place], [id number], [place] tel:[phone] 2 Converted Locations No Information 7 Z-Convert ed Provider. . [facility], [address] [place] [address],[address], [place], [place], [id number], [place] tel:[phone] [facility] Rash and other nonspecific skin eruption 7 Z-Convert ed Provider. . [facility], [address], [place], [place], [id number], [place] tel:[phone] 2 Converted Locations No Information 200 7 Z-Convert ed Provider. . Family History Family Member Type Diagnosis Age At Onset No Information Payers Payer name Insurance type Covered alliance party ID Authoriza tion(s) No Information Social History Type Description Quantity Date Captured Comments Sex Male Smoking Status No Information Sexual Orientation Straight or heterosexual Chief Complaint And Reason For Visit No Information Reason For Referral Reason For Referral No Information History Of Present Illness Encounter Date Complaint History Of Prese nt Illness No Information Functional Status Date Functional Assessmen t No Information Instructions Date Instruction Additional Infor mation No Information Assessments Type Assessment Date No Information Patient Care Teams Name Effective Dates (start - stop) Status Members No Information
[2025-05-25 15:58] VITALS: BP 128/93; PULSE 68; BMI 27.6
--- NOTE | 2025-05-25 15:58 | MHC.OFFVIS ---
Vital Signs 05/25/25 15:58 Height 5 ft 7 in Weight 176 lb 5.917 oz BMI 27.6 BP 128/93 H Blood Pressure Location Lt brachial Position Sitting Pulse 68 Intake Visit Reasons: Ulcerative colitis/anemia Intake Note: Stan return to in office follow of ulcerative colitis. CC: Patient reports doing well and denies having any new concerns today. Social Service Agency Director Required: No Accompanied by: Self / Same As Patient Allergies No Known Allergies Allergy (Verified 05/25/25 16:04) HPI HPI Ulcerative colitis/anemia: Details: Assessment & Plan (1) Ulcerative colitis: Code(s): K51.90 - Ulcerative colitis, unspecified, without complications Category: Medical Qualifiers: Ulcerative colitis location: unspecified ulcerative colitis location Digestive disease complication type: unspecified complication Qualified Code(s): K51.919 - Ulcerative colitis, unspecified with unspecified complications Plan He was dx'ed in [facility] with UC after multiple frequent BM's and a change in his bowel habits. He was not bleeding at that time, but now he does occasionally. He brought his reports and is on mesalamine oral, rectal and proctofoam. BUT he did not have the pathology report. He has been avoiding gluten - likely not needed. Printed information on general topic of ulcerative colitis from [employer] and nutritional guide from [employer]. He was educated encouraged to continue his mesalamine as a chronic medication. He was also educated that sometimes this is not enough to keep IBD in remission so should he develop more symptoms despite medication compliance she should let me know right away. This does not denote failure on his part. He was also educated that he should be having a colonoscopy every 2 years as people with inflammatory bowel disease have a higher chance of developing colorectal cancer in their lifetime. He likes to by his medication over season Natalie because it is much less expensive therefore I will be setting any prescription to the local pharmacy at this time. ROV 6 mos. TODAYS VISIT [facility] Medical History Encounter for general adult medical examination with abnormal findings Pre-op examination Surgical History History of esophagogastroduodenoscopy (EGD) H/O lithotripsy H/O colonoscopy Family History Mother Breast cancer Social History Housing: House Patient Tobacco Use Status: Never used Tobacco e-Cigarette/Vaping Use: Never Used service: No Current occupational status: employed Cognitive needs: No Hearing needs: No Vision needs: Yes Physical Exam Vital Signs: Last Vital Signs Pulse 68 05/25/25 15:58 BP 128/93 H 05/25/25 15:58 BMI result Body Mass Index 27.6 Assessment & Plan Assessment & Plan (1) Ulcerative colitis: Code(s): K51.90 - Ulcerative colitis, unspecified, without complications Category: Medical Qualifiers: Ulcerative colitis location: unspecified ulcerative colitis location Digestive disease complication type: unspecified complication Qualified Code(s): K51.919 - Ulcerative colitis, unspecified with unspecified complications Plan Subjective Routine follow-up for ulcerative colitis. Patient reports feeling well and remains well-controlled on mesalamine. Denies diarrhea or rectal bleeding. States symptoms are well-managed with dietary control, avoiding spicy and oily foods. Reports intermittent gas/bloating that began after starting a new sedentary job; notes stress may contribute. Underwent colonoscopy at [facility] (approximately 2019) and another colonoscopy in [facility] last year per family doctor; primary care discussed having a healthcare network consultant involved locally, and patient has been following with me for routine check-ins. Objective Assessment & Plan Ulcerative colitis: Clinically stable and well-controlled on mesalamine without diarrhea or rectal bleeding. - Continue mesalamine as currently prescribed. - Continue dietary measures that have been effective (avoiding spicy and oily foods). - I will attempt to obtain and reconcile prior colonoscopy report from [facility] (circa 2019) and note the colonoscopy completed in [facility] last year. - Routine follow-up in 1 year, or sooner if symptoms recur (diarrhea, bleeding, abdominal pain). Intestinal gas/bloating - Reviewed common dietary triggers and age-related changes in digestion; provided FODMAP food list for guidance on identifying triggers. - Recommend trial of an sksj-adf-ftwmudj probiotic to support gut microbiome balance. - Encourage regular movement as tolerated; acknowledge that sedentary work and stress can exacerbate symptoms. - If symptoms persist despite these measures, will consider further evaluation. Return office visit in 1 year Coding Level of Care Code Est Pt Level 3 (21639) Diagnoses Ulcerative colitis with complication, unspecified location K51.919 Ulcerative colitis location: unspecified ulcerative colitis location Digestive disease complication type: unspecified complication
== END 2025-05-25 16:16 | disposition home or self-care (01) ==
LOC: HO.HGI 15:56
PROVIDERS: PCP Internal Medicine; Visit Provider Nurse Practitioner
DX: K51.919 Ulcerative colitis, unspecified with unspecified complications (principal)
CPT/HCPCS: 99213

== ENCOUNTER 2025-06-15 14:48 | Outpatient (AMB) | payer OTHER, SELFPAY ==
[2025-06-15 14:51] VITALS: BP 130/80; PULSE 71; O2SAT 97; BMI 27.6
--- NOTE | 2025-06-15 14:51 | MHC.PC.OV ---
Vital Signs 06/15/25 14:51 Height 5 ft 7 in Weight 176 lb BMI 27.6 BP 130/80 Blood Pressure Location Lt brachial Position Sitting Pulse 71 Pulse Source Pulse Oximeter Pulse Oximetry (%) 97 Intake Visit Reasons: 3 month follow up Allergies No Known Allergies Allergy (Verified 06/15/25 14:52) Medication List - Last Reconciled 06/15/[address] MD atenolol-chlorthalidone 50-25 mg 1 tab PO DAILY cholecalciferol (vitamin D3) 25 mcg PO DAILY 90 days ezetimibe (Zetia) 10 mg PO DAILY flaxseed oil 1,000 mg PO DAILY magnesium glycinate 100 mg PO .QHS 90 days multivitamin 1 tab PO DAILY Tobacco use date assessed: 03/11/25 Dental Screening Dental Screen Date: 03/11/25 HPI HPI Comments History of Present Illness Details History of Present Illness The patient is a 49 year old male presenting with a routine follow-up for chronic condition management. Essential Hypertension: - The patient takes atenolol-chlorthalidone for blood pressure and reports no side effects. - Home blood pressure monitoring shows systolic readings between 118 and 126 mmHg. Hyperlipidemia: - The patient takes Zetia 10 mg for hyperlipidemia. - A blood test in February showed an LDL level of 120 mg/dL. Elevated liver enzymes: - Blood tests from February indicated that his liver enzymes were still high but had improved. hx of Ulcerative colitis stable Ankle Edema: - The patient had a prior issue with ankle edema which has resolved with magnesium supplementation. Medical History: - Essential Hypertension - Hyperlipidemia - History of elevated liver enzymes - History of ankle edema, resolved Social History: - Diet: The patient reports having stopped eating unnecessary food. - Employment: The patient is employed and received his influenza vaccine at work. Diagnostic Results: - Labs from February: - CBC: Normal. - Electrolytes and kidney function: Normal. - Glucose: Normal. - Liver enzymes: Elevated but improved. - LDL: 120 mg/dL. - Vitamin B12: 380 pg/mL. - Vitamin D: Normal. [facility] Medical History Encounter for general adult medical examination with abnormal findings Pre-op examination Surgical History History of esophagogastroduodenoscopy (EGD) H/O lithotripsy H/O colonoscopy Family History Mother Breast cancer Social History Housing: House Patient Tobacco Use Status: Never used Tobacco e-Cigarette/Vaping Use: Never Used service: No Current occupational status: employed Cognitive needs: No Hearing needs: No Vision needs: Yes Questionnaire Thrive Questionnaire Date Thrive assessed: 03/11/25 I am a: Patient What is your living situation today?: I have a steady place to live Within the past 12 months, did the food you bought not last and you didn't have the money to get more?: I choose not to answer this question Within the past 12 months, did you worry whether your food would run out before you got money to buy more?: I choose not to answer this question Do you have trouble paying for medicines?: I choose not to answer this question Do you have trouble getting transportation to medical appointments?: No Do you have trouble paying your heating and electricity bill?: No Do you have trouble taking care of your child, family member or friend?: No Do you have trouble with day-to-day activities such as bathing, preparing meals, shopping, managing finances, etc.?: No Are you currently unemployed and looking for a job?: No Are you interested in more education?: No Please select the resources that you would like help with: None Currently or been in a relationship where the following occur: I choose not to answer THRIVE Score: 0 KIRBY-7 AMB Questionnaire KIRBY-7 Date KIRBY - 7 assessed: 03/11/25 Source: Developed by Drs. Corbin Proter, Marion Goodman, Anthony Law and colleagues, with an educational basim from [employer]. Review of Systems Narrative Review of Systems - General: No fever no chills - Neurological: No headaches no dizziness - Ear nose throat: No sore throat no hearing difficulty no ear pain - Cardiovascular: No syncope, no chest pain, no palpitations - Gastrointestinal: No nausea vomiting or diarrhea - Endocrine: No polyuria polydipsia no heat intolerance - Genitourinary: No dysuria , no blood in urine Physical exam (Primary Care) Vital Signs: Last Vital Signs Pulse 71 06/15/25 14:51 BP 130/80 06/15/25 14:51 Pulse Ox 97 06/15/25 14:51 BMI result Body Mass Index 27.6 Tobacco/Smoking Status: Tobacco use Status Tobacco use date assessed 03/11/25 06/15/25 14:58 Patient Tobacco Use Status Never used Tobacco 06/15/25 14:58 e-Cigarette/Vaping Use Never Used 06/15/25 14:58 Thrive Assessment: Date of Thrive Assessment Date Thrive assessed 03/11/25 06/15/25 14:58 Currently or been in a relationship where the following occur: I choose not to answer Narrative Physical Exam - General: No acute distress - HEENT: No acute findings - Neck: Supple - Respiratory system: Able to talk in full sentences, no audible wheeze - Cardiovascular: S1-S2 regular in rate and rhythm - Gastrointestinal: No pain - Extremities: No new findings - [employer]: Alert awake oriented x3 motor intact - Skin: Normal turgor Coding Level of Care Code Est Pt Level 4 (56091) Diagnoses Hypertension, essential I10 Lipid disorder E78.9 Vitamin D deficiency E55.9 Ulcerative colitis with complication, unspecified location K51.919 Digestive disease complication type: unspecified complication Ulcerative colitis location: unspecified ulcerative colitis location LFT elevation R79.89 Assessment & Plan Assessment & Plan (1) Hypertension, essential: Code(s): I10 - Essential (primary) hypertension Category: Medical (2) Lipid disorder: Code(s): E78.9 - Disorder of lipoprotein metabolism, unspecified Category: Medical (3) Vitamin D deficiency: Code(s): E55.9 - Vitamin D deficiency, unspecified Category: Medical (4) Ulcerative colitis: Code(s): K51.90 - Ulcerative colitis, unspecified, without complications Category: Medical Qualifiers: Digestive disease complication type: unspecified complication Ulcerative colitis location: unspecified ulcerative colitis location Qualified Code(s): K51.919 - Ulcerative colitis, unspecified with unspecified complications (5) LFT elevation: Code(s): R79.89 - Other specified abnormal findings of blood chemistry Category: Medical Plan Problem List - Essential Hypertension - Hyperlipidemia - Elevated liver enzymes - Preventative care: Influenza vaccination - UC Plan - The patient will continue with his current medications. - An order will be placed for fasting labs to be completed before his next visit. - The patient will follow up in four months, in September. - The patient has already received his flu vaccine at work. Orders: Orders Complete Blood Count Auto Diff 3 Months E55.9 - Vitamin D deficiency, unspecified, E78.9 - Disorder of lipoprotein metabolism, unspecified, I10 - Essential (primary) hypertension, K51.919 - Ulcerative colitis, unspecified with unspecified complications, R79.89 - Other specified abnormal findings of blood chemistry Comprehensive [place]. Panel Fast 3 Months E55.9 - Vitamin D deficiency, unspecified, E78.9 - Disorder of lipoprotein metabolism, unspecified, I10 - Essential (primary) hypertension, K51.919 - Ulcerative colitis, unspecified with unspecified complications, R79.89 - Other specified abnormal findings of blood chemistry Lipid Panel 3 Months E55.9 - Vitamin D deficiency, unspecified, E78.9 - Disorder of lipoprotein metabolism, unspecified, I10 - Essential (primary) hypertension, K51.919 - Ulcerative colitis, unspecified with unspecified complications, R79.89 - Other specified abnormal findings of blood chemistry Vitamin D 25-OH (D2 and D3) Today E55.9 - Vitamin D deficiency, unspecified
== END 2025-06-15 15:06 | disposition home or self-care (01) ==
LOC: HO.HMCC 14:49
PROVIDERS: PCP Internal Medicine; Visit Provider Internal Medicine
DX: I10 Essential (primary) hypertension (principal); E78.9 Disorder of lipoprotein metabolism, unspecified; E55.9 Vitamin D deficiency, unspecified; K51.919 Ulcerative colitis, unspecified with unspecified complications; R79.89 Other specified abnormal findings of blood chemistry